=== PATIENT | male | born 1995 | race African-American/Black ===

== ENCOUNTER 2020-10-18 11:06 | Outpatient (REF) | payer MEDICAID, SELFPAY | END 2020-10-18 11:07 | disposition home or self-care (01) | LOC: HO.LAB 11:06 | PROVIDERS: Visit Provider Internal Medicine | DX: Z20.828 Contact with and (suspected) exposure to other viral communicable diseases (principal) | CPT/HCPCS: C9803; U0003 ==

== ENCOUNTER 2020-10-31 08:44 | Emergency (ER) | payer MEDICAID, SELFPAY ==
[2020-10-31 08:55] VITALS: BP 111/61; PULSE 86; RESP 18; TEMP 37.7; O2SAT 97; BMI 27.3
--- NOTE | 2020-10-31 09:10 | ED_ITS ---
HPI - Skin/Abscess/Foreign Bdy General Chief complaint: Skin/Abscess/Foreign Body Stated complaint: abscess under arm Time Seen by Provider: 10/31/20 09:04 Source: patient Mode of arrival: ambulatory Limitations: no limitations History of Present Illness HPI narrative: Patient here with right axillary swelling x3 days. History of abscesses which are recurrent. History of hydradenitis. No fevers or chills MD complaint: abscess/boil Onset (ago): day(s) (3 days) Tetanus up to date: no Location: RUE (axillae) Severity: mild Quality: burning Relieving factors: none Exacerbating factors: none Context: none Associated symptoms: denies other symptoms Treatments prior to arrival: none Related Data Previous Rx's Medication Instructions Recorded doxycycline monohydrate 100 mg PO BID #21 cap 10/31/20 ibuprofen 600 mg PO Q8H PRN #20 tab 10/31/20 Allergies Allergy/AdvReac Type Severity Reaction Status Date / Time SEASONAL ALLERGIES Allergy Mild SNEEEXING Uncoded 07/14/20 16:22 RUNNY NOSE Review of Systems Review of Systems: Yes all other systems are reviewed and are negative Constitutional: Constitutional: Reports no additional constitutional complaints, Denies body ache(s), Denies chills, Denies fever(s), Denies headache(s) and Denies weakness Eyes: Eyes: Reports no additional eye complaints and Denies change in vision ENT: Reports system reviewed and no additional complaints, except as documented, Denies dizziness, Denies headache(s), Denies nasal congestion, Denies nasal discharge and Denies neck pain Cardiovascular: Cardiovascular: Reports no additional cardiovascular compl aints, Denies chest pain, Denies leg edema and Denies dyspnea Respiratory: Respiratory: Reports no additional respiratory complaints, Denies cough and Denies dyspnea Gastrointestinal: Gastrointestinal: Reports no additional gastrointestinal complaints, Denies abdominal pain, Denies diarrhea, Denies nausea and Denies vomiting Genitourinary: Genitourinary: Denies urinary incontinence Musculoskeletal: Musculoskeletal: Reports no additional musculoskeletal complaints, Denies back pain, Denies arthralgias, Denies joint swelling, Denies neck pain, Denies numbness and Denies tingling Integumentary/Breasts: Skin/Breast: Reports system reviewed and no additional complaints, except as docu, Reports furuncle and Denies rash Neurologic: Reports system reviewed and no additional complaints, except as documented, Denies Abnormal speech present, Denies dizziness, Denies headache (s), Denies numbness, Denies tingling and Denies weakness PMFSH Past Medical History Attestation statement: The following information was validated with the patient. Source: old records reviewed and nursing notes reviewed Medical History No known health problems Social History Social History Advance Directives: No Advance Directives Information Provided: No Physical Exam Vital Signs: Vital Signs: Last Vital Signs Temp 99.9 F 10/31/20 08:55 Pulse 86 10/31/20 08:55 Resp 18 10/31/20 08:55 BP 111/61 10/31/20 08:55 Pulse Ox 97 10/31/20 08:55 Body Mass Index 27.3 Const: General: cooperative, healthy appearing, comfortable and no acute dist ress Orientation/consciousness: patient oriented x3 Limitations: no limitations HENMT: Head: Yes normal to inspection Ears: hearing grossly normal bilaterally General nose exam: Normal external nose present Face and sinus: Yes normal facial exam Mouth: Normal oral and palatal mucosa present Throat: Yes posterior oropharynx normal Eyes: General: appearance normal, both eyes and all related structures Pupils: Equal, round and reactive pupils present Neck: Neck: Yes normal visual inspection Chest: Chest palpation & inspection: normal inspection of the chest Resp: Effort & Inspection: normal respiratory effort Auscultation: clear to auscultation bilaterally Cardio: Rate: regular rate Rhythm: regular rhythm Peripheral pulses: Peripheral pulses 2+ throughout GI: Inspection: Yes normal to inspection Palpation (GI): Soft to palpation and nontender Auscultation: normal bowel sounds Back/Spine/Pelvis: Thoracic/Lumbar Spine: thoracic and lumbar spine normal to inspection Skin: Other: to the right axilla there is a medium abscess with fluctuance, induration and tenderness. no surrounding cellulitis or lymphadenopathy General skin exam: no rashes or lesions noted Neuro: General: patient oriented x3, no focal motor deficits and normal sensation to monofilament Cranial nerves: Yes Equal, round and reactive pupils present Cognition (Neuro): normal cognition Speech: No Abnormal speech present Gait exam (Neuro): Normal gait present Motor exam (neuro): 5/5 motor strength present throughout Extrem: General: Yes normal to inspection Course Course Course Narrative: See I&D note. Patient given 1st dose of antibiotics and analgesia here in the emergency department. Refer you to follow-up care in 48 hours. Reviewed worrisome signs and symptoms of when to return to the emergency department. Comfortable discharge home. Procedures Abscess I/D Site: upper extremity (r axillae) Side (if applicable): right Local Anesthetic: lidocaine 2% Technique: incised with blade Packing used?: iodoform Discharge Plan Discharge Clinical Impression: Hidradenitis Abscess of skin or subcutaneous tissue Qualifiers: Site of cutaneous abscess: extremity Site of cutaneous abscess of extremity: axilla Laterality: right Qualified Code(s): L02.411 - Cutaneous abscess of right axilla Patient Disposition: Home, Self-Care Instructions: Abscess (ED), Hidradenitis Suppurativa (ED) Additional Instructions: return in 2 days for packing removal Prescriptions: New doxycycline monohydrate 100 mg capsule 100 mg PO BID Qty: 21 RF: 0 ibuprofen 600 mg tablet 600 mg PO Q8H PRN (Reason: pain) Qty: 20 RF: 0 Referrals: Woodrow Ratliff MD [Physician] - 2 days Interventions: ED Discharge Assessment Last Done: 10/31/20 09:40 Discharge Date/Time: 10/31/20 09:40
[2020-10-31] MEDS: Lidocaine HCl 2 % MPF 5 ML VIAL SUBCUT (09:12)
[2020-10-31] MEDS: Ibuprofen 600 MG TABLET PO (09:36)
== END 2020-10-31 09:40 | disposition home or self-care (01) ==
PROVIDERS: Emergency Provider Emergency Medicine
DX: L02.411 Cutaneous abscess of right axilla (principal)
CPT/HCPCS: 10060; 99283; 99284

== ENCOUNTER 2021-04-03 22:32 | Emergency (ER) | payer MEDICAID, SELFPAY ==
[2021-04-03 23:12] VITALS: BP 131/67; PULSE 67; RESP 18; TEMP 37.1; O2SAT 96; BMI 26.4
== END 2021-04-04 00:56 | disposition left against medical advice (07) ==
PROVIDERS: Emergency Provider Emergency Medicine; PCP Internal Medicine
DX: R50.9 Fever, unspecified (principal); Z20.822 Contact with and (suspected) exposure to COVID-19
CPT/HCPCS: 99282

== ENCOUNTER 2021-08-02 10:35 | Outpatient (REF) | payer MEDICAID, SELFPAY | END 2021-08-02 10:36 | disposition home or self-care (01) | LOC: HO.LAB 10:35 | PROVIDERS: Visit Provider Internal Medicine | DX: Z20.822 Contact with and (suspected) exposure to COVID-19 (principal) | CPT/HCPCS: C9803; U0003; U0005 ==

== ENCOUNTER 2021-08-02 10:50 | Emergency (ER) | payer MEDICAID, SELFPAY ==
[2021-08-02 12:09] VITALS: BP 116/67; PULSE 77; RESP 18; TEMP 36.4; O2SAT 97; BMI 27.7
--- NOTE | 2021-08-02 12:13 | ED.URI ---
HPI - URI/Sore Throat General Chief Complaint: Upper Respiratory Symptoms Stated Complaint: difficulty breathing Time Seen by Provider: 08/02/21 12:12 Source: patient Mode of arrival: ambulatory Limitations: no limitations History of Present Illness HPI Narrative: upper respiratory symptoms with fever, headache sore throat and cough, not vaccinated. Byron and sister have COVID and he has been watching them MD elicited complaint: fever, cough, sore throat and rhinorrhea Onset (ago): week(s) Consistency: constant Exacerbating factors: nothing Relieving factors: nothing Associated symptoms: fever, chills, headache and cough Related Data Previous Rx's Medication Instructions Recorded doxycycline monohydrate 100 mg 100 mg PO BID #21 cap 10/31/20 capsule ibuprofen 600 mg tablet 600 mg PO Q8H PRN #20 tab 10/31/20 Allergies Allergy/AdvReac Type Severity Reaction Status Date / Time SEASONAL ALLERGIES Allergy Mild SNEEEXING Uncoded 07/14/20 16:22 RUNNY NOSE Review of Systems Neurologic: Denies Sensory deficit (Neuro) [facility] Past Medical History Medical History No known health problems Physical Exam Vital Signs: Vital Signs: Last Vital Signs Temp 97.6 F 08/02/21 12:09 Pulse 77 08/02/21 12:09 Resp 18 08/02/21 12:09 BP 116/67 08/02/21 12:09 Pulse Ox 97 08/02/21 12:09 Body Mass Index 27.7 Const: Other: nasal congestion with cough General: healthy appearing Nutritional Appearance: average body habitus Orientation/consciousness: oriented to person and patient oriented x3 Limitations: no limitations HENMT: Head: Yes normal to inspection Ears: external ears normal General nose exam: Normal external nose present Mouth: Normal oral and palatal mucosa present and oropharynx normal Throat: Yes posterior oropharynx normal Eyes: General: appearance normal, both eyes and all related structures Neck: Other: supple Neck: Yes normal visual inspection Chest: Chest palpation & inspection: normal inspection of the chest Resp: Auscultation: clear to auscultation bilaterally Cardio: Jugular venous distension: no JVD Rate: regular rate Rhythm: regular rhythm Heart sounds: S1 normal heart sound present and S2 normal heart sound present GI: Inspection: Yes normal to inspection Palpation (GI): Soft to palpation, nontender and No hepatosplenomegaly present Auscultation: normal bowel sounds : General: Yes no CVA tenderness Back/Spine/Pelvis: Back: no CVA tenderness Skin: General skin exam: no rashes or lesions noted Neuro: General: oriented to person and patient oriented x3 Cranial nerves: Yes CN's II-XII intact bilaterally Motor exam (neuro): 5/5 motor strength present throughout Sensory Exam: No Sensory deficit (Neuro) Extrem: General: Yes normal to inspection Psych: Appearance: grossly normal Course Reevaluation(s) Reevaluation #1: patient with COVID will dc home Time: 12:23 MDM - URI/Sore Throat Lab Data Labs: Lab Results 08/02/21 Range/Units 11:40 COVID-19 ([facility]) Positive A (Negative) COVID-19 Clin Com See Note Discharge Plan Discharge Clinical Impression: COVID-19 Patient Disposition: Home, Self-Care Instructions: COVID-19 (Coronavirus Disease 2019) (ED) Prescriptions: No Action doxycycline monohydrate 100 mg capsule 100 mg PO BID Qty: 21 RF: 0 ibuprofen 600 mg tablet 600 mg PO Q8H PRN (Reason: pain) Qty: 20 RF: 0 Referrals: Physician,Unknown J [Primary Care Provider] - 1 week
[2021-08-02 12:19] LABS: COVID-19 Test Positive (Negative); IDNOW Serial# 9DD0AD1C
== END 2021-08-02 12:44 | disposition home or self-care (01) ==
LOC: HO.ED 12:27
PROVIDERS: Emergency Provider Emergency Medicine
DX: U07.1 COVID-19 (principal)
CPT/HCPCS: 36415; 87635; 99283

== ENCOUNTER 2021-08-07 15:32 | Outpatient (REF) | payer MEDICAID, SELFPAY | END 2021-08-07 15:33 | disposition home or self-care (01) | LOC: HO.LAB 15:32 | PROVIDERS: Visit Provider Internal Medicine | DX: Z20.822 Contact with and (suspected) exposure to COVID-19 (principal) | CPT/HCPCS: C9803; U0003; U0005 ==

== ENCOUNTER 2021-09-05 11:05 | Emergency (ER) | payer OTHER, MEDICAID, SELFPAY ==
--- NOTE | ~2021-09-05 | XR_ITS ---
EXAMINATION: XR HAND, LEFT CLINICAL INFORMATION: Left hand injury. COMPARISON: None TECHNIQUE: PA, lateral, and oblique views of the left hand. FINDINGS: The bones and soft tissues are normal. No fracture. Alignment is anatomic. Joint spaces are maintained. No erosions or soft tissue calcifications. XR/XR hand LT min 3V IMPRESSION: Normal left hand.
[2021-09-05 12:24] VITALS: BP 110/34; PULSE 52; RESP 16; TEMP 36.7; O2SAT 98; BMI 27.3
[2021-09-05] MEDS: cephALEXin 500 MG CAPSULE PO (13:19)
[2021-09-05] MEDS: Diphth,Pertus(ACell),Tet Adult 0.5 ML SYRINGE IM (13:19)
--- NOTE | 2021-09-05 14:11 | ED_ITS ---
HPI - Wound/Laceration General Chief Complaint: Wound/Laceration Stated Complaint: lt hand injury - work related Time Seen by Provider: 09/05/21 13:10 History of Present Illness HPI narrative: Patient complains of puncture wound to the palm of the left hand from a piece of metal at work, no numbness or weakness no tingling no other injury Related Data Previous Rx's Medication Instructions Recorded doxycycline monohydrate 100 mg 100 mg PO BID #21 cap 10/31/20 capsule ibuprofen 600 mg tablet 600 mg PO Q8H PRN #20 tab 10/31/20 cephalexin 500 mg tablet 500 mg PO QID 3 Days #12 tab 09/05/21 ibuprofen 600 mg tablet 600 mg PO Q6H PRN #20 tab 09/05/21 Allergies Allergy/AdvReac Type Severity Reaction Status Date / Time SEASONAL ALLERGIES Allergy Mild SNEEEXING Uncoded 07/14/20 16:22 RUNNY NOSE Review of Systems Review of Systems: Left hand pain Negatives are no fever no chills no dizziness no weakness no headache no neck pain no numbness weakness or tingling no other injury Yes all other systems are reviewed and are negative [facility] Past Medical History Source: nursing notes reviewed Medical History No known health problems Social History Social History Advance Directives: No Advance Directives Information Provided: No Physical Exam Vital Signs: Vital Signs: Last Vital Signs Temp 98.1 F 09/05/21 12:24 Pulse 52 09/05/21 12:24 Resp 16 09/05/21 12:24 BP 110/34 L 09/05/21 12:24 Pulse Ox 98 09/05/21 12:24 Body Mass Index 27.3 General appearance no acute distress Head is normocephalic atraumatic Neck is supple Respiratory no distress Extremities full range of motion x4 Left hand has a puncture wound to the thenar eminence palmar surface, no active bleeding, there is minor swelling of the thenar eminence, there is full range of motion in all fingers, 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, no evidence of any tendon deficit Other extremities normal Course Course Course Narrative: Left hand x-ray did not show any foreign body or bony injury Patient is given prophylactic Keflex and a tetanus shot and will follow with [facility] in 2-3 days for recheck Discharge Plan Discharge Clinical Impression: Puncture wound of hand, left Patient Disposition: Home, Self-Care Additional Instructions: X-ray did not show any broken bone or foreign body You got a tetanus shot today We wrote for 3 days of preventative antibiotic Follow with [facility] for recheck in 3 days on Saturday if not better Prescriptions: New cephalexin 500 mg tablet 500 mg PO QID 3 Days Qty: 12 RF: 0 ibuprofen 600 mg tablet 600 mg PO Q6H PRN (Reason: pain) Qty: 20 RF: 0 No Action doxycycline monohydrate 100 mg capsule 100 mg PO BID Qty: 21 RF: 0 ibuprofen 600 mg tablet 600 mg PO Q8H PRN (Reason: pain) Qty: 20 RF: 0 Referrals: [facility] [Provider Group] - 2 days (Recheck for puncture wound to left hand) Stand Alone Forms: Work/School Release
== END 2021-09-05 14:23 | disposition home or self-care (01) ==
PROVIDERS: Emergency Provider Emergency Medicine; PCP Internal Medicine
DX: S61.432A Puncture wound without foreign body of left hand, initial encounter (principal); W26.8XXA Contact with other sharp object(s), not elsewhere classified, initial encounter; Y93.9 Activity, unspecified; Y92.9 Unspecified place or not applicable; Y99.0 Civilian activity done for income or pay
CPT/HCPCS: 73130; 90471; 90715; 99283; 99284

== ENCOUNTER → 2021-09-12 10:14 | Outpatient (BNVA) | payer OTHER, SELFPAY | PROVIDERS: PCP Internal Medicine; Visit Provider Internal Medicine | DX: S61.432A Puncture wound without foreign body of left hand, initial encounter (principal); W22.8XXA Striking against or struck by other objects, initial encounter | CPT/HCPCS: 99202 ==

== ENCOUNTER → 2021-09-15 09:06 | Outpatient (BNVA) | payer OTHER, SELFPAY | PROVIDERS: PCP Internal Medicine; Visit Provider Internal Medicine | DX: M79.645 Pain in left finger(s) (principal) | CPT/HCPCS: 99213 ==

== ENCOUNTER 2022-10-24 11:34 | Emergency (ER) | payer MEDICAID, SELFPAY ==
--- NOTE | ~2022-10-24 | XR_ITS ---
EXAMINATION: XR CHEST CLINICAL INFORMATION: Chest pain and shortness of breath COMPARISON: Previous chest x-ray November 2019 TECHNIQUE: Frontal view of the chest was obtained. FINDINGS: No significant abnormality is noted involving the heart, lungs, mediastinum, bony thorax or soft tissues. XR/XR chest 1V IMPRESSION: Unremarkable examination.
--- NOTE | 2022-10-24 11:40 | ECG_ITS ---
Test Reason : CHEST PAIN Blood Pressure : / mmHG Vent. Rate : 064 BPM Atrial Rate : 064 BPM P-R Int : 146 ms QRS Dur : 084 ms QT Int : 380 ms P-R-T Axes : 021 080 034 degrees QTc Int : 392 ms Normal sinus rhythm Normal ECG When compared with ECG of 17-AUG-2019 14:04, No significant change was found Referred By: Generic ED Physician Electronically Signed By:SAMIRA MCKENZIE MD
[2022-10-24 11:47] VITALS: BP 137/87; PULSE 64; RESP 16; TEMP 36.4; O2SAT 100; BMI 26.6
--- NOTE | 2022-10-24 11:47 | ED.GENADULT ---
HPI - General Adult General Chief complaint: Chest Pain <MAXIMINO Arredondo - Last Filed: 10/24/22 12:04> Stated complaint: chest pain , sob , body aches no appettite <MAXIMINO Arredondo - Last Filed: 10/24/22 12:04> Time Seen by Provider: 10/24/22 12:13 <MAXIMINO Arredondo - Last Filed: 10/24/22 12:04> Source: patient <Annamaria Mujica MD - Last Filed: 10/24/22 13:50> Mode of arrival: ambulatory <Annamaria Mujica MD - Last Filed: 10/24/22 13:50> History of Present Illness HPI narrative: 27-year-old male who is currently on Humira for hidradenitis suppurativa and presents with lower back discomfort for the past week but he does work as a manual labor this has not been associated with any fever or chills and did resolve somewhat with increasing his water intake. Patient then began experiencing acute left chest wall pain that was sharp in nature and was not worsened or a alleviated with any movement or breathing. Patient does not currently have the pain at this time and otherwise denies any GI or symptoms and denies any chest pain/palpitations. <Annamaria Mujica MD - Last Filed: 10/24/22 13:50> Related Data Home medications: Previous Rx's Medication Instructions Recorded doxycycline monohydrate 100 mg 100 mg PO BID #21 caps 10/31/20 capsule ibuprofen 600 mg tablet 600 mg PO Q8H PRN pain #20 tabs 10/31/20 cephalexin 500 mg tablet 500 mg PO QID 3 days #12 tabs 09/05/21 ibuprofen 600 mg tablet 600 mg PO Q6H PRN pain #20 tabs 09/05/21 <MAXIMINO Arredondo - Last Filed: 10/24/22 12:04> Allergies/adverse reactions: Allergies Allergy/AdvReac Type Severity Reaction Status Date / Time SEASONAL ALLERGIES Allergy Mild SNEEEXING Uncoded 10/24/22 11:52 RUNNY NOSE <MAXIMINO Arredondo - Last Filed: 10/24/22 12:04> Review of Systems Review of Systems: Pertinent positives and negatives as stated in HPI. <Annamaria Mujica MD - Last Filed: 10/24/22 13:50> PMFSH Past Medical History Source: nursing notes reviewed <Annamaria Mujica MD - Last Filed: 10/24/22 13:50> Medical History: Medical History No known health problems <MAXIMINO Arredondo - Last Filed: 10/24/22 12:04> Social History Social History: Social History Advance Directives: No Advance Directives Information Provided: Yes <MAXIMINO Arredondo - Last Filed: 10/24/22 12:04> Physical Exam ED Vital Signs: Vital Signs - 24 hr 10/24/22 11:47 Temperature 97.6 F Pulse Rate 64 Respiratory Rate 16 Blood Pressure 137/87 Pulse Oximetry 100 Oxygen Delivery Method Room Air BMI result Body Mass Index 26.6 <MAXIMINO Arredondo - Last Filed: 10/24/22 12:04> Vital Signs - 24 hr 10/24/22 11:47 Temperature 97.6 F Pulse Rate 64 Respiratory Rate 16 Blood Pressure 137/87 Pulse Oximetry 100 Oxygen Delivery Method Room Air BMI result Body Mass Index 26.6 VITAL SIGNS: Reviewed. GENERAL: Well developed, well nourished, in no acute distress. HEAD: Normocephalic/atraumatic EYES: PERRLA, EOMI EARS: Ext canals without abnormality OROPHARYNX: no oral lesions noted, posterior pharynx clear NECK: Supple, no adenopathy LUNGS: Normal breath sounds. No adventitious sounds or accessory muscle use. SpO2<100> CARDIOVASCULAR: Regular rate and rhythm without noted murmurs, no JVD or lower extremity edema. ABDOMEN: Soft, non-tender, non-distended with bowel sounds, no CVA tenderness BACK: No midline vertebral tenderness, no paraspinal tenderness MUSCULOSKELETAL: No tenderness, deformities, or effusions noted on gross inspection. EXTREMITIES: No cyanosis, clubbing or edema. SKIN: Inspection of the skin reveals no rashes NEUROLOGIC: Alert and oriented x 4. Strength and sensation to light touch were grossly intact x 4. <Annamaria Mujica MD - Last Filed: 10/24/22 13:50> Course Course Course Narrative: 11:48 - RME - 27 yo male with history of hidradenitis suppuritiva recently started on Humira 09/27 who is presenting with 4 days of low back pain, fatigue and lower abdominal discomfort when he needs to urinate. 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 No fevers. - will check viral swabs, EKG, labs, CXR, UA. VSS, nontoxic appearing. plan per provider in the Main <MAXIMINO Arredondo - Last Filed: 10/24/22 12:04> 11:48 - RME - 27 yo male with history of hidradenitis suppuritiva recently started on Humira 09/27 who is presenting with 4 days of low back pain, fatigue and lower abdominal discomfort when he needs to urinate. 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 No fevers. - will check viral swabs, EKG, labs, CXR, UA. VSS, nontoxic appearing. plan per provider in the Main I reviewed patient's laboratory workup and imaging studies, there is no evidence of acute infection, anemia, electrolyte disturbance, renal function is maintained, troponins are undetectable and there are no acute changes on the EKG, viral testing is negative, patient is PERC negative chest x-ray shows no acute abnormalities. Urinalysis is negative and patient is otherwise discharged home in stable condition and has an appointment with his primary care provider today at 15:30. <Annamaria Mujica MD - Last Filed: 10/24/22 13:50> Medical Decision Making Medical Decision Making [facility] Narrative: 27-year-old male with history and clinical presentation that appears to be primarily a costochondritis. PERC: Negative <Annamaria Mujica MD - Last Filed: 10/24/22 13:50> Differential Diagnosis Differential Diagnoses: The differential diagnosis associated with the presentation includes <Annamaria Mujica MD - Last Filed: 10/24/22 13:50> Costochondritis, musculoskeletal <Annamaria Mujica MD - Last Filed: 10/24/22 13:50> Lab Data [facility] Lab Attestation statement: I reviewed the patient's lab results. <Annamaria Mujica MD - Last Filed: 10/24/22 13:50> Please see the course Section for discussion. <Annamaria Mujica MD - Last Filed: 10/24/22 13:50> Result Diagrams: : 10/24/22 12:02 10/24/22 12:02 <MAXIMINO Arredondo - Last Filed: 10/24/22 12:04> Labs: Lab Results 10/24/22 10/24/22 10/24/22 Range/Units 12: 12:02 12:03 WBC 6.8 (4.8-10.8) X10*3/uL RBC 4.79 (4.60-5.80) X10*6/uL Hgb 14.9 (14.0-18.0) g/dl Hct 44.9 (42.0-52.0) % MCV 93.7 (80.0-98.0) fL MCH 31.1 (27.0-33.0) pg MCHC 33.2 (31.0-36.0) g/dl RDW 13.2 (11.0-16.0) % Plt Count 274 (160-400) X10*3/uL MPV 8.6 L (9.4-12.4) fL Immature Gran % (Auto) 0.1 (0.0-0.4) % Neut % (Auto) 48.4 (45-73) % Lymph % (Auto) 41.1 H (20-40) % [place] % (Auto) 6.6 (2-11) % Eos % (Auto) 3.1 (0-4) % Baso % (Auto) 0.7 (0-2) % Lymph # (Auto) 2.8 (1.2-4.9) X10*3/uL [place] # (Auto) 0.5 (0.1-1.2) X10*3/uL Eos # (Auto) 0.2 (0.0-0.4) X10*3/uL Baso # (Auto) 0.1 (0.0-0.2) X10*3/uL Abs Immat Gran (auto) 0.01 (0.00-0.03) X10*3/uL Absolute Neuts (auto) 3.3 (2.0-8.3) x10*3/uL Absolute Nucleated RBC 0.000 (0.0-0.012) X10*3/uL Nucleated RBC % (auto) 0.0 (0.0-0.2) /100WBC Sodium 140 (135-145) mmol/L Potassium 4.3 (3.3-5.1) mmol/L Chloride 103 (96-108) mmol/L Carbon Dioxide 29 (22-29) mmol/L Anion Gap 12 (12-20) BUN 14 (9-16) mg/dL Creatinine 1.39 (0.5-1.4) mg/dL Estim Creat Clear Calc 79.8 Estimated GFR > 60 Random Glucose 99 (60-115) mg/dL Calcium 9.9 (8.4-10.2) mg/dL Magnesium 1.9 (1.6-2.6) mg/dL Total Bilirubin 0.5 (0.0-1.0) mg/dL Direct Bilirubin 0.2 (0.0-0.5) mg/dL AST 23 (5-37) U/L ALT 18 (0-40) U/L Alkaline Phosphatase 71 (39-117) U/L Troponin I High Sens < 3.5 (<3.5-35.0) ng/L Total Protein 7.8 (6.5-8.0) g/dL Albumin 4.6 (3.5-5.0) g/dL Urine Color Urine Appearance Urine pH (5.0-9.0) Ur Specific [place] (1.005-1.025) Urine Protein (Neg-Trace) mg/dL Urine Glucose (UA) (Negative) mg/dL Urine Ketones (Negative) mg/dL Urine Blood (Negative) Urine Nitrite (Negative) Ur Leukocyte Esterase (Negative) COVID-19 (YOANDY) (Negative) COVID-19 Clin Com Influenza Type A (LU) (Negative) Influenza Type B (LU) (Negative) Influenza A & B Note 10/24/22 10/24/22 10/24/22 Range/Units 12:03 12:51 12:51 WBC (4.8-10.8) X10*3/uL RBC (4.60-5.80) X10*6/uL Hgb (14.0-18.0) g/dl Hct (42.0-52.0) % MCV (80.0-98.0) fL MCH (27.0-33.0) pg MCHC (31.0-36.0) g/dl RDW (11.0-16.0) % Plt Count (160-400) X10*3/uL MPV (9.4-12.4) fL Immature Gran % (Auto) (0.0-0.4) % Neut % (Auto) (45-73) % Lymph % (Auto) (20-40) % [place] % (Auto) (2-11) % Eos % (Auto) (0-4) % Baso % (Auto) (0-2) % Lymph # (Auto) (1.2-4.9) X10*3/uL [place] # (Auto) (0.1-1.2) X10*3/uL Eos # (Auto) (0.0-0.4) X10*3/uL Baso # (Auto) (0.0-0.2) X10*3/uL Abs Immat Gran (auto) (0.00-0.03) X10*3/uL Absolute Neuts (auto) (2.0-8.3) x10*3/uL Absolute Nucleated RBC (0.0-0.012) X10*3/uL Nucleated RBC % (auto) (0.0-0.2) /100WBC Sodium (135-145) mmol/L Potassium (3.3-5.1) mmol/L Chloride (96-108) mmol/L Carbon Dioxide (22-29) mmol/L Anion Gap (12-20) BUN (9-16) mg/dL Creatinine (0.5-1.4) mg/dL Estim Creat Clear Calc Estimated GFR Random Glucose (60-115) mg/dL Calcium (8.4-10.2) mg/dL Magnesium (1.6-2.6) mg/dL Total Bilirubin (0.0-1.0) mg/dL Direct Bilirubin (0.0-0.5) mg/dL AST (5-37) U/L ALT (0-40) U/L Alkaline Phosphatase (39-117) U/L Troponin I High Sens (<3.5-35.0) ng/L Total Protein (6.5-8.0) g/dL Albumin (3.5-5.0) g/dL Urine Color Yellow Urine Appearance Clear Urine pH 6.5 (5.0-9.0) Ur Specific [place] 1.015 (1.005-1.025) Urine Protein Negative (Neg-Trace) mg/dL Urine Glucose (UA) Negative (Negative) mg/dL Urine Ketones Negative (Negative) mg/dL Urine Blood Negative (Negative) Urine Nitrite Negative (Negative) Ur Leukocyte Esterase Negative (Negative) COVID-19 (YOANDY) Negative (Negative) COVID-19 Clin Com See Note Influenza Type A (LU) Negative (Negative) Influenza Type B (LU) Negative (Negative) Influenza A & B Note See Note <MAXIMINO Arredondo - Last Filed: 10/24/22 12:04> Lab Results 10/24/22 10/24/22 10/24/22 Range/Units 12:02 12:02 12:03 WBC 6.8 (4.8-10.8) X10*3/uL RBC 4.79 (4.60-5.80) X10*6/uL Hgb 14.9 (14.0-18.0) g/dl Hct 44.9 (42.0-52.0) % MCV 93.7 (80.0-98.0) fL MCH 31.1 (27.0-33.0) pg MCHC 33.2 (31.0-36.0) g/dl RDW 13.2 (11.0-16.0) % Plt Count 274 (160-400) X10*3/uL MPV 8.6 L (9.4-12.4) fL Immature Gran % (Auto) 0.1 (0.0-0.4) % Neut % (Auto) 48.4 (45-73) % Lymph % (Auto) 41.1 H (20-40) % [place] % (Auto) 6.6 (2-11) % Eos % (Auto) 3.1 (0-4) % Baso % (Auto) 0.7 (0-2) % Lymph # (Auto) 2.8 (1.2-4.9) X10*3/uL [place] # (Auto) 0.5 (0.1-1.2) X10*3/uL Eos # (Auto) 0.2 (0.0-0.4) X10*3/uL Baso # (Auto) 0.1 (0.0-0.2) X10*3/uL Abs Immat Gran (auto) 0.01 (0.00-0.03) X10*3/uL Absolute Neuts (auto) 3.3 (2.0-8.3) x10*3/uL Absolute Nucleated RBC 0.000 (0.0-0.012) X10*3/uL Nucleated RBC % (auto) 0.0 (0.0-0.2) /100WBC Sodium 140 (135-145) mmol/L Potassium 4.3 (3.3-5.1) mmol/L Chloride 103 (96-108) mmol/L Carbon Dioxide 29 (22-29) mmol/L Anion Gap 12 (12-20) BUN 14 (9-16) mg/dL Creatinine 1.39 (0.5-1.4) mg/dL Estim Creat Clear Calc 79.8 Estimated GFR > 60 Random Glucose 99 (60-115) mg/dL Calcium 9.9 (8.4-10.2) mg/dL Magnesium 1.9 (1.6-2.6) mg/dL Total Bilirubin 0.5 (0.0-1.0) mg/dL Direct Bilirubin 0.2 (0.0-0.5) mg/dL AST 23 (5-37) U/L ALT 18 (0-40) U/L Alkaline Phosphatase 71 (39-117) U/L Troponin I High Sens < 3.5 (<3.5-35.0) ng/L Total Protein 7.8 (6.5-8.0) g/dL Albumin 4.6 (3.5-5.0) g/dL Urine Color Urine Appearance Urine pH (5.0-9.0) Ur Specific [place] (1.005-1.025) Urine Protein (Neg-Trace) mg/dL Urine Glucose (UA) (Negative) mg/dL Urine Ketones (Negative) mg/dL Urine Blood (Negative) Urine Nitrite (Negative) Ur Leukocyte Esterase (Negative) COVID-19 (YOANDY) (Negative) COVID-19 Clin Com Influenza Type A (LU) (Negative) Influenza Type B (LU) (Negative) Influenza A & B Note 10/24/22 10/24/22 10/24/22 Range/Units 12:03 12:51 12:51 WBC (4.8-10.8) X10*3/uL RBC (4.60-5.80) X10*6/uL Hgb (14.0-18.0) g/dl Hct (42.0-52.0) % MCV (80.0-98.0) fL MCH (27.0-33.0) pg MCHC (31.0-36.0) g/dl RDW (11.0-16.0) % Plt Count (160-400) X10*3/uL MPV (9.4-12.4) fL Immature Gran % (Auto) (0.0-0.4) % Neut % (Auto) (45-73) % Lymph % (Auto) (20-40) % [place] % (Auto) (2-11) % Eos % (Auto) (0-4) % Baso % (Auto) (0-2) % Lymph # (Auto) (1.2-4.9) X10*3/uL [place] # (Auto) (0.1-1.2) X10*3/uL Eos # (Auto) (0.0-0.4) X10*3/uL Baso # (Auto) (0.0-0.2) X10*3/uL Abs Immat Gran (auto) (0.00-0.03) X10*3/uL Absolute Neuts (auto) (2.0-8.3) x10*3/uL Absolute Nucleated RBC (0.0-0.012) X10*3/uL Nucleated RBC % (auto) (0.0-0.2) /100WBC Sodium (135-145) mmol/L Potassium (3.3-5.1) mmol/L Chloride (96-108) mmol/L Carbon Dioxide (22-29) mmol/L Anion Gap (12-20) BUN (9-16) mg/dL Creatinine (0.5-1.4) mg/dL Estim Creat Clear Calc Estimated GFR Random Glucose (60-115) mg/dL Calcium (8.4-10.2) mg/dL Magnesium (1.6-2.6) mg/dL Total Bilirubin (0.0-1.0) mg/dL Direct Bilirubin (0.0-0.5) mg/dL AST (5-37) U/L ALT (0-40) U/L Alkaline Phosphatase (39-117) U/L Troponin I High Sens (<3.5-35.0) ng/L Total Protein (6.5-8.0) g/dL Albumin (3.5-5.0) g/dL Urine Color Yellow Urine Appearance Clear Urine pH 6.5 (5.0-9.0) Ur Specific [place] 1.015 (1.005-1.025) Urine Protein Negative (Neg-Trace) mg/dL Urine Glucose (UA) Negative (Negative) mg/dL Urine Ketones Negative (Negative) mg/dL Urine Blood Negative (Negative) Urine Nitrite Negative (Negative) Ur Leukocyte Esterase Negative (Negative) COVID-19 (YOANDY) Negative (Negative) COVID-19 Clin Com See Note Influenza Type A (LU) Negative (Negative) Influenza Type B (LU) Negative (Negative) Influenza A & B Note See Note <Annamaria Mujica MD - Last Filed: 10/24/22 13:50> Independent Interpretation I performed an independent interpretation of an: EKG <Annamaria Mujica MD - Last Filed: 10/24/22 13:50> Interpretation: Normal sinus rhythm, HR-64, no STEMI, IL/QRS/QTC is within normal limits. <Annamaria Mujica MD - Last Filed: 10/24/22 13:50> Radiology Impression Radiologist Impression: My interpretation is in agreement with radiology's impression of imaging studies. <Annamaria Mujica MD - Last Filed: 10/24/22 13:50> External Record Review External record reviewed: Outpatient record and Prior outpatient labs <Annamaria Mujica MD - Last Filed: 10/24/22 13:50> Discharge Plan Discharge Clinical Impression: Chest wall pain, Musculoskeletal pain <MAXIMINO Arredondo - Last Filed: 10/24/22 12:04> Patient Disposition: Home, Self-Care <MAXIMINO Arredondo - Last Filed: 10/24/22 12:04> Instructions: Chest Wall Pain (ED), Musculoskeletal Pain (ED) <MAXIMINO Arredondo - Last Filed: 10/24/22 12:04> Additional Instructions: 1. Recommend [id number] Tylenol in combination with lidocaine patch for your chest wall pain. As you seem to be concerned about ibuprofen associated kidney problems I would refrain from using this. 2. Please keep your scheduled appointment at 15:30. Return to the ER for worsening symptoms. <MAXIMINO Arredondo - Last Filed: 10/24/22 12:04> Prescriptions: No Action doxycycline monohydrate 100 mg capsule 100 mg PO BID Qty: 21 0RF ibuprofen 600 mg tablet 600 mg PO Q8H PRN (Reason: pain) Qty: 20 0RF cephalexin 500 mg tablet 500 mg PO QID 3 Days Qty: 12 0RF ibuprofen 600 mg tablet 600 mg PO Q6H PRN (Reason: pain) Qty: 20 0RF <MAXIMINO Arredondo - Last Filed: 10/24/22 12:04>
[2022-10-24 12:09] LABS: MANUAL DIFF FLAG NO
[2022-10-24 12:11] LABS: Basophils Absolute Auto 0.1 X10*3/uL (0.0-0.2); Basophils Percent Auto 0.7 % (0-2); Eosinophils Absolute Auto 0.2 X10*3/uL (0.0-0.4); Eosinophils Percent Auto 3.1 % (0-4); Hematocrit 44.9 % (42.0-52.0); Hemoglobin 14.9 g/dl (14.0-18.0); Imm Gran Abs Auto 0.01 X10*3/uL (0.00-0.03); Imm Gran Pct Auto 0.1 % (0.0-0.4); Lymphocytes Absolute Auto 2.8 X10*3/uL (1.2-4.9); Lymphocytes Percent Auto 41.1 % (20-40); Mean Corpuscular HGB Conc 33.2 g/dl (31.0-36.0); Mean Corpuscular Hemoglobin 31.1 pg (27.0-33.0); Mean Corpuscular Volume 93.7 fL (80.0-98.0); Mean Platelet Volume 8.6 fL (9.4-12.4); Monocytes Absolute Auto 0.5 X10*3/uL (0.1-1.2); Monocytes Percent Auto 6.6 % (2-11); Neutrophils Absolute Auto 3.3 x10*3/uL (2.0-8.3); Neutrophils Percent Auto 48.4 % (45-73); Platelet Count 274 X10*3/uL (160-400); Red Blood Count 4.79 X10*6/uL (4.60-5.80); Red Cell Distribution Width 13.2 % (11.0-16.0); White Blood Count 6.8 X10*3/uL (4.8-10.8)
[2022-10-24 12:12] LABS: Appearance Urine Clear; Color Urine Yellow; Glucose Urine UA Negative (Negative); Leukocyte Esterase Urine Negative (Negative); Nitrite Urine Negative (Negative); PH 6.5 (5.0-9.0); Specific Gravity - Urine 1.015 (1.005-1.025); Urine Blood Negative (Negative); Urine Ketones Negative (Negative); Urine Protein Negative (Neg-Trace)
[2022-10-24 12:25] LABS: Alanine Aminotransferase 18 U/L (0-40); Albumin Level 4.6 g/dL (3.5-5.0); Alkaline Phosphatase 71 U/L (39-117); Anion Gap 12 (12-20); Aspartate Amino Transferase 23 U/L (5-37); Bilirubin Direct 0.2 mg/dL (0.0-0.5); Bilirubin Total 0.5 mg/dL (0.0-1.0); Blood Urea Nitrogen 14 mg/dL (9-16); Calcium 9.9 mg/dL (8.4-10.2); Carbon Dioxide 29 mmol/L (22-29); Chloride 103 mmol/L (96-108); Creatinine Clr Calc Pharmacy 79.8; Estimated Glomerular Filt Rate > 60; Glucose Random 99 mg/dL (60-115); Magnesium 1.9 mg/dL (1.6-2.6); Potassium 4.3 mmol/L (3.3-5.1); Sodium 140 mmol/L (135-145); Total Protein 7.8 g/dL (6.5-8.0)
[2022-10-24 12:33] LABS: Troponin-I High Sensitivity < 3.5 ng/L (<3.5-35.0)
[2022-10-24 13:16] LABS: COVID-19 Test Negative (Negative); IDNOW Serial# 08D9AD1C
[2022-10-24 13:17] LABS: Influenza A Negative (Negative); Influenza B2 Negative (Negative)
== END 2022-10-24 13:53 | disposition home or self-care (01) ==
PROVIDERS: Physician Assistant; Emergency Provider Student in an Organized Health Care Education/Training Program
DX: R07.89 Other chest pain (principal); R06.02 Shortness of breath; Z20.822 Contact with and (suspected) exposure to COVID-19; Z79.899 Other long term (current) drug therapy
CPT/HCPCS: 36415; 71045; 80048; 80076; 81003; 82550; 83735; 84484; 85025; 87502; 87635; 93005; 99283; 99284

== ENCOUNTER 2023-06-07 11:29 | Outpatient (REF) | payer MEDICAID, SELFPAY | END 2023-06-07 11:30 | disposition home or self-care (01) | LOC: HO.LNP 11:29 | PROVIDERS: PCP Nurse Practitioner Family; Referring Provider Registered Nurse; Visit Provider Surgery | DX: L02.01 Cutaneous abscess of face (principal); Z79.2 Long term (current) use of antibiotics; Z79.899 Other long term (current) drug therapy | CPT/HCPCS: 10060; 87070; 87205; 99202 ==

== ENCOUNTER 2023-06-07 11:29 | Outpatient (AMB) | payer MEDICAID, SELFPAY ==
--- NOTE | 2023-06-07 11:34 | MHC.OFFVIS ---
Intake Vital Signs 06/07/23 11:48 Height 5 ft 9 in Weight 175 lb BMI 25.8 BP 116/56 L Blood Pressure Location Lt brachial Position Sitting Pulse 76 Intake Visit Reasons: I&D Lt upper cheek/ under eye Intake Note: Patient is seen in office for evaluation of a let upper cheek under the eye, possible I&D. Patient c/o: has a lump on the left cheek for aprox 3 weeks did see urgent care and they where unable to drain it, seen machine tank operator and was told might be due to his HS, admits to pain, swelling, eye is closing at night, nausea due to pain, and is currently on antibiotics Allergies SEASONAL ALLERGIES Allergy (Mild, Uncoded 06/07/23 11:42) SNEEEXING RUNNY NOSE Medication List - Last Reconciled 06/10/23 by Darrell Hernandez MD cephalexin 500 mg PO QID 3 days doxycycline monohydrate 100 mg PO BID ibuprofen 600 mg PO Q8H PRN ibuprofen 600 mg PO Q6H PRN HPI HPI Comments History of Present Illness Details 27-year-old male patient presenting for evaluation of an abscess of the left cheek. The lesion started out as a small pimple or insect bite in gradually increased in size and is now extending up the cheek towards his eye. Was evaluated by is machine tank operator felt this may be related to his hidradenitis. He was started on antibiotics but has not noted any significant improvement. He denies fever, chills, bleeding or discharge. He was also evaluated at a walk-in clinic but they could not perform an incision and drainage. He presents now for possible incision and drainage. Denies a previous infection at this location. [facility] Medical History No known health problems Family History Maternal Grandfather Throat cancer Paternal Aunt Breast cancer Paternal Aunt Breast cancer Paternal Aunt Breast cancer Leukemia Paternal Grandmother Pancreatic cancer Social History Alcohol intake: never Patient Tobacco Use Status: Former Tobacco user Review of Systems Const All systems reviewed & are unremarkable except as noted in HPI and below Denies chills, Denies fever(s), Denies headache(s), Denies poor appetite and Denies weakness ENT Denies headache(s) Card Denies chest pain, Denies irregular heart rhythm, Denies palpitations and Denies dyspnea Resp Denies cough, Denies excessive phlegm production and Denies dyspnea GI Denies abdominal pain, Denies bloating, Denies change in bowel habits, Denies constipation, Denies heartburn, Denies diarrhea, Denies nausea and Denies vomiting Denies difficulty urinating and Denies urinary frequency Musc Denies back pain, Denies muscle weakness and Denies numbness Skin/Breast Denies changing lesions and Denies unusual bruising Neuro Denies headache(s), Denies numbness, Denies paresthesias and Denies weakness Psych Denies anxiety and Denies depression Endo Denies palpitations Sincere/Lymph Denies lymphadenopathy Physical Exam Vital Signs: Last Vital Signs Pulse 76 06/07/23 11:48 BP 116/56 L 06/07/23 11:48 BMI result Body Mass Index 25.8 Const General: cooperative and no acute distress Nutritional Appearance: well nourished Orientation/consciousness: patient oriented x3 Limitations: no limitations HEENT Head: Yes normocephalic and Yes atraumatic Head images: 1. Site of abscess left face. Site is tender, fluctuant, warm with surrounding area of erythema. Ears: hearing grossly normal bilaterally Resp Effort & Inspection: normal respiratory effort, no audible wheezes, no cough and no respiratory distress Cardio Jugular venous distension: no JVD GI Inspection: Yes normal to inspection Skin Other: Warm, dry, no rash Neuro General: patient oriented x3 Extrem General: Yes no clubbing, cyanosis or edema Office Procedures I&D Drain Details: Preoperative diagnosis: Abscess left face Postoperative diagnosis: Same Procedure: Incision and drainage abscess left face Surgeon: Darrell Hernandez MD Traffic Inspector: None Anesthesia: Lidocaine 1% with epinephrine Indications for procedure: Enlarging abscess of left face Operative findings: Abscess left face Specimen: Wound culture Estimated blood loss: Less than 2 mL Complications: None Procedure details: Patient was placed in a supine position. After assuring informed consent and confirming the site of surgery in the left face, the skin was prepped with Betadine and draped in a sterile fashion. Local anesthesia was then infiltrated over the abscess and a small incision made with 11 blade. The abscess cavity was entered and a moderate size abscess cavity drained. Wounds were irrigated with saline solution then packed with quarter-inch Nu Gauze. Dry sterile dressings were then applied. The patient tolerated the procedure well. He was discharged in stable condition. 65938-Rxftrxrv of Skin Abscess, simple All charges added?: Procedure code (CPT) selection complete Assessment & Plan Assessment & Plan (1) Abscess of face: Code(s): L02.01 - Cutaneous abscess of face Plan 27-year-old male patient presenting with an abscess of the left face. Incision and drainage was recommended. After discussion of the procedure, risks, and alternatives, he consented to the procedure. The incision drainage produced a small collection of purulence discharge. Wound cultures are sent. I have asked him to return in 1 week for a wound check. Orders: Orders Routine Culture w Gram Stain 06/07/23 L02.01 - Cutaneous abscess of face Coding Level of Care Code New Pt Level 4 (87466) Diagnoses Abscess of face L02.01 CPT Codes I&D Drain - Drain 1: 27772-Dvasvbeb of Skin Abscess, simple ([id number])
[2023-06-07 11:48] VITALS: BP 116/56; PULSE 76; BMI 25.8
== END 2023-06-07 12:04 | disposition home or self-care (01) ==
PROVIDERS: PCP Nurse Practitioner Family; Referring Provider Registered Nurse; Visit Provider Surgery
DX: L02.01 Cutaneous abscess of face (principal); L73.2 Hidradenitis suppurativa
CPT/HCPCS: 10060; 99204

== ENCOUNTER 2023-11-07 16:26 | Emergency (ER) | payer MEDICAID, SELFPAY ==
[2023-11-07 16:29] VITALS: BP 117/73; PULSE 90; RESP 20; TEMP 36.8; O2SAT 97; BMI 25.7
--- NOTE | 2023-11-07 16:30 | ED.SKABFB ---
HPI - Skin/Abscess/Foreign Bdy General Chief complaint: Skin/Abscess/Foreign Body Stated complaint: lab cyst on back of leg Related Data Previous Rx's Medication Instructions Recorded doxycycline monohydrate 100 mg 100 mg PO BID #21 caps 10/31/20 capsule ibuprofen 600 mg tablet 600 mg PO Q8H PRN pain #20 tabs 10/31/20 cephalexin 500 mg tablet 500 mg PO QID 3 days #12 tabs 09/05/21 ibuprofen 600 mg tablet 600 mg PO Q6H PRN pain #20 tabs 09/05/21 Allergies Allergy/AdvReac Type Severity Reaction Status Date / Time SEASONAL ALLERGIES Allergy Mild SNEEEXING Uncoded 06/07/23 11:42 RUNNY NOSE PMFSH Past Medical History Onset Date is defined in the Problem List Problems that require an onset date and time if occurred within 24 hrs of arrival to the ED Aortic Dissection and Rupture; Neurologic impairment; Cardiopulmonary Arrest; Endotracheal Intubation; Insertion or Replacement of Mechanical Circulatory Assist Device Medical History No known health problems Family History Family History Maternal Grandfather Throat cancer Paternal Aunt Breast cancer Paternal Aunt Breast cancer Paternal Aunt Breast cancer Leukemia Paternal Grandmother Pancreatic cancer Social History Social History Alcohol intake: never Patient Tobacco Use Status: Former Tobacco user Advance Directives: No Advance Directives Information Provided: No Physical Exam Vital Signs: Vital Signs: Last Vital Signs Temp 98.2 F 11/07/23 16:29 Pulse 90 11/07/23 16:29 Resp 20 11/07/23 16:29 BP 117/73 11/07/23 16:29 Pulse Ox 97 11/07/23 16:29 O2 Del Method Room Air 11/07/23 16:29 BMI result Body Mass Index 25.7 Course Course Course Narrative: c/o cyst left crease of posterior upper thigh into the left buttock x several days. Has a cyst that he drained on the right posterior thigh and attempted to drain the left but believes he made it worse. Took 600 mg Ibuprofen prior to arrival to the ED HX: Hidradenitis suppurative RME: A&Ox4, LS CTA, HR RRR, difficulty with ambulation due to pain. RME completed by Suzanne Discharge Plan Discharge Clinical Impression: Encounter for medical screening examination Patient Disposition: Left W/O Completing Treatment Prescriptions: No Action doxycycline monohydrate 100 mg capsule 100 mg PO BID Qty: 21 0RF ibuprofen 600 mg tablet 600 mg PO Q8H PRN (Reason: pain) Qty: 20 0RF cephalexin 500 mg tablet 500 mg PO QID 3 Days Qty: 12 0RF ibuprofen 600 mg tablet 600 mg PO Q6H PRN (Reason: pain) Qty: 20 0RF Discharge Date/Time: 11/07/23 20:04
--- OUTSIDE RECORDS SUMMARY | 2023-11-07 19:56 | XMS_ITS | Continuity of Care Document ---
Author Name Unknown Organization [facility] Autumn breana Address [address] [place] [address] [address] [place] [address]- Care Team Providers Care Inspector Watch Assembly Name Role Phone Janet Harris MD Primary Care Physicia n [place] [facility] [place]14/23 [facility] [address] [place] [address]- Allergies, Adverse Reactions, Alerts No Known Allergies Medications albuterol CFC free 90 mcg/inh inhalation aerosol 1 puffs, Inhalation, 4 times a day, PRN for wheezing, # 25 Gm, 0 Refills, Maintenance, Aerosol Start Date: 09/18/11 Status: Ordered ibuprofen 600 mg oral tablet 1 tablet = 600 mg, By Mouth, Every 6 hours, PRN as needed for pain, # 20 tablet, 0 Refills, Maintenance, Tablet Start Date: 09/19/11 Status: Ordered Naproxen By Mouth, 0 Refills, Maintenance Start Date: 02/03/13 Status: Ordered Singulair 10 mg oral tablet 1 tablet, By Mouth, Daily in PM, # 30 tablet, 0 Refills, Maintenance, Tablet Start Date: 09/18/11 Status: Ordered Problem List Condition Confirmation Course Effective Dates Status Health St atus Informant Bronchial asthma Confirmed Active Hydradenitis Confirmed 02/03/13 Active Patient Care team information Care Team Personnel Name: Janet Harris MD Position: [facility] MD Member Role: PCP Address: Address: [facility] [place] [address]- Care Team Related Persons Name: LAQUITA COSTA Address: home [address] [place] [address] Name: DEYVI NG Address: home [address] [place] [address]
== END 2023-11-07 20:04 | disposition left against medical advice (07) ==
LOC: HO.ED 19:55
PROVIDERS: Emergency Provider Emergency Medicine; PCP Nurse Practitioner Family
DX: L72.8 Other follicular cysts of the skin and subcutaneous tissue (principal); Z71.1 Person with feared health complaint in whom no diagnosis is made; L73.2 Hidradenitis suppurativa
CPT/HCPCS: 99281

== ENCOUNTER 2023-12-03 11:28 | Outpatient (REF) | payer MEDICAID, SELFPAY ==
[2023-12-04 07:38] LABS: HIV AB/AG Nonreactive (Nonreactive); HIV Num 1 0.06 S/CO (0.00-0.99)
[2023-12-04 19:53] LABS: RPR Rapid Plasma Reagin NON-REACTIVE (NON-REACTIVE)
[2023-12-05 18:24] LABS: HCV Log PCR <1.18 NOT DETECTED Log IU/mL (NOT DETECTED); HepC Viral Load <15 NOT DETECTED IU/mL (NOT DETECTED)
== END 2023-12-03 11:29 | disposition home or self-care (01) ==
LOC: HO.CHCLDS 11:28
PROVIDERS: Visit Provider Internal Medicine
DX: Z11.4 Encounter for screening for human immunodeficiency virus [HIV] (principal); N48.1 Balanitis
CPT/HCPCS: 36415; 86592; 87389; 87522

== ENCOUNTER 2024-01-20 10:19 | Emergency (ER) | payer OTHER, SELFPAY ==
[2024-01-20 10:48] VITALS: BP 106/59; PULSE 70; RESP 16; TEMP 37; O2SAT 98; BMI 25.4
[2024-01-20 11:17] LABS: Appearance Urine Cloudy; Color Urine Yellow; Glucose Urine UA Negative (Negative); Leukocyte Esterase Urine Negative (Negative); Nitrite Urine Negative (Negative); Specific Gravity - Urine 1.025 (1.005-1.025); Urine Blood Negative (Negative); Urine Ketones Negative (Negative); Urine Protein Negative (Neg-Trace)
[2024-01-20 11:24] LABS: Bacteria Urine None Seen (None Seen); Hyaline Casts Urine 0-2 /LPF (0-2); RBC Urine 0-2 /HPF (0-2); Squamous Epithelial Cell Urine 0-2 /HPF (0-2); WBC Urine 0-5 /HPF (0-5)
--- NOTE | 2024-01-20 11:40 | ED.MALEGU ---
HPI - Male Genitourinary General Chief complaint: Urogenital-Male Stated complaint: infection Time Seen by Provider: 01/20/24 11:10 Source: patient Mode of arrival: ambulatory Limitations: no limitations History of Present Illness HPI Narrative: Patient is a 28-year-old uncircumcised male with history of hidradenitis suppurativa who has been on antibiotics for his HS for the past 4 years prescribed by his outpatient phlebotomist. He was started on fluconazole also by his outpatient phlebotomist 1 month ago for balanitis and is on a 14 week course of treatment. He denies history of diabetes. He complains of ongoing white discharge from his penis as well as pain to the head of his penis with his morning erections. States he was tested for STIs approximately 1 month ago but has had unprotected sex with his girlfriend since then. Is requesting repeat testing today. Denies any dysuria. Complaint: penile discharge Onset (ago): week(s) Duration: constant Location: penis Quality: burning Relieving factors: none Exacerbating factors: palpation and other (erection) Associated symptoms: Reports discharge Related Data Previous Rx's Medication Instructions Recorded doxycycline monohydrate 100 mg 100 mg PO BID #21 caps 10/31/20 capsule ibuprofen 600 mg tablet 600 mg PO Q8H PRN pain #20 tabs 10/31/20 cephalexin 500 mg tablet 500 mg PO QID 3 days #12 tabs 09/05/21 ibuprofen 600 mg tablet 600 mg PO Q6H PRN pain #20 tabs 09/05/21 hydrocortisone 1 % topical cream 1 appl topical TID PRN skin 01/20/24 irritation #28.35 grams Allergies Allergy/AdvReac Type Severity Reaction Status Date / Time SEASONAL ALLERGIES Allergy Mild SNEEEXING Uncoded 06/07/23 11:42 RUNNY NOSE Review of Systems Review of Systems: As per HPI Yes all other systems are reviewed and are negative PMFSH Past Medical History Medical History No known health problems Family History Family History Maternal Grandfather Throat cancer Paternal Aunt Breast cancer Paternal Aunt Breast cancer Paternal Aunt Breast cancer Leukemia Paternal Grandmother Pancreatic cancer Social History Social History Alcohol intake: never Patient Tobacco Use Status: Former Tobacco user Advance Directives: No Advance Directives Information Provided: No Physical Exam Vital Signs: Vital Signs: Last Vital Signs Temp 98.6 F 01/20/24 10:48 Pulse 70 01/20/24 10:48 Resp 16 01/20/24 10:48 BP 106/59 L 01/20/24 10:48 Pulse Ox 98 01/20/24 10:48 O2 Del Method Room Air 01/20/24 10:48 BMI result Body Mass Index 25.4 Vital signs have been reviewed and appear to be correct. Blood pressure normal. Heart rate normal. Respiratory rate normal. Temperature normal. Oxygen saturation normal. Const: General: no acute distress, alert and awake Orientation/consciousness: patient oriented x3 HEENT: Head: Yes normocephalic and Yes atraumatic Mouth: oropharynx normal and moist mucous membranes Throat: Yes uvula midline Eyes: Pupils: Equal, round and reactive pupils present EOM: EOMs intact bilaterally Neck: Neck: Yes normal visual inspection, Yes full ROM, Yes no lymphadenopathy, Yes no meningeal signs and Yes supple Resp: Effort & Inspection: normal respiratory effort Auscultation: clear to auscultation bilaterally Cardio: Rate: regular rate Rhythm: regular rhythm Heart sounds: S1 normal heart sound present and S2 normal heart sound present Peripheral pulses: Peripheral pulses 2+ throughout GI: Inspection: Yes normal to inspection and No distended Palpation (GI): Soft to palpation, nontender, no guarding, hepatosplenomegaly present and No Rebound tenderness present Auscultation: normoactive bowel sounds : Other: Exam chaperoned by Gracei Lehman RN General: Yes no CVA tenderness Penis: uncircumcised, foreskin retracts, Localized penile swelling present (mild swelling to foreskin, no paraphimosis or phimosis) and other (milky white discharge to head/foreskin) Back/Spine/Pelvis: Back: no CVA tenderness Skin: General skin exam: elasticity normal and turgor normal Rashes: no rashes Neuro: General: patient oriented x3, gait normal and no meningeal signs Cranial nerves: Yes Equal, round and reactive pupils present Motor exam (neuro): 5/5 motor strength present throughout and Normal motor muscle tone present throughout Sensory Exam: Normal double simultaneous stimulation for sensation Medical Decision Making Medical Decision Making [facility] Narrative: Patient is a 28-year-old uncircumcised male with history of hidradenitis suppurativa who has been on antibiotics for his HS for the past 4 years prescribed by his outpatient phlebotomist. On exam patient is awake, A+Ox3, VS WNL, afebrile, normal neurological exam without focal deficits, physical exam findings as above. Given reported symptoms and physical exam findings, initial differential includes balanitis, phimosis, paraphimosis, STI, UTI. Urinalysis shows no evidence of infection. STI testing is pending, patient will be contacted with any positive results. Case discussed with Dr. Clarke who recommends a topical steroid, will prescribe short course of hydrocortisone cream. Will refer to urology for further evaluation and management, as patient may be candidate for circumcision. Return precautions discussed. Patient verbalized understanding of and agreement with plan. Differential Diagnosis Differential Diagnoses: The differential diagnosis associated with the presentation includes As per MDM. Consult Healthcare Provider Management of the patient was discussed with: Firebrick Layer Helper (Dr. Clarke, urologist) Lab Data [facility] Lab Attestation statement: I reviewed the patient's lab results. As per [facility]. Labs: Lab Results 01/20/24 01/20/24 Range/Units 11:06 12:28 Estimat Average Glucose 108 mg/dL Hemoglobin A1c % 5.4 (<6.0) % Urine Color Yellow Urine Appearance Cloudy Urine pH 8.0 (5.0-9.0) Ur Specific [place] 1.025 (1.005-1.025) Urine Protein Negative (Neg-Trace) mg/dL Urine Glucose (UA) Negative (Negative) mg/dL Urine Ketones Negative (Negative) mg/dL Urine Blood Negative (Negative) Urine Nitrite Negative (Negative) Ur Leukocyte Esterase Negative (Negative) Urine RBC 0-2 (0-2) /HPF Urine WBC 0-5 (0-5) /HPF Ur Squamous Epith Cells 0-2 (0-2) /HPF Urine Bacteria None Seen (None Seen) Hyaline Casts 0-2 (0-2) /LPF External Record Review External record reviewed: Inpatient record, Office record and Outpatient record Prescription Management I considered prescription management with: Other Discharge Plan Discharge Clinical Impression: Balanitis Patient Disposition: Home, Self-Care Instructions: Balanitis (ED) Additional Instructions: You were evaluated in emergency department today for penile pain and discharge. You are being prescribed 1% hydrocortisone cream to apply topically. You can perform warm salt water soaks twice daily. You are being referred to Urology for further evaluation and management of your symptoms. Please call their office to schedule an appointment as soon as possible. Return to the emergency department if you develop increased swelling, worsening pain, fever or any other concerning symptoms. Prescriptions: New hydrocortisone 1 % cream 1 appl topical TID PRN (Reason: skin irritation) Qty: 28.35 0RF No Action doxycycline monohydrate 100 mg capsule 100 mg PO BID Qty: 21 0RF ibuprofen 600 mg tablet 600 mg PO Q8H PRN (Reason: pain) Qty: 20 0RF cephalexin 500 mg tablet 500 mg PO QID 3 Days Qty: 12 0RF ibuprofen 600 mg tablet 600 mg PO Q6H PRN (Reason: pain) Qty: 20 0RF Referrals: [facility] [Provider Group]
[2024-01-20 12:45] LABS: Estimated Average Glucose 108 mg/dL; Hemoglobin A1c % 5.4 % (<6.0)
[2024-01-20 13:39] LABS: CT PCR NOT DETECTED (Not Detect.); NG PCR NOT DETECTED (Not Detect.)
[2024-01-20 13:51] VITALS: BP 106/59; PULSE 70; RESP 16; TEMP 37; O2SAT 98
[2024-01-21 04:24] LABS: Syphilis Screen Nonreactive (Nonreactive)
== END 2024-01-20 13:52 | disposition home or self-care (01) ==
PROVIDERS: Registered Nurse Emergency; Emergency Provider Emergency Medicine; PCP Nurse Practitioner Family
DX: N48.1 Balanitis (principal)
CPT/HCPCS: 0353U; 36415; 81001; 83036; 86780; 99282; 99283

== ENCOUNTER 2024-02-26 14:35 | Outpatient (AMB) | payer OTHER, SELFPAY ==
--- NOTE | 2024-02-26 15:30 | A.OFFVIS_ITS ---
Intake Visit Reasons: balanitis Intake Note: New Patient presents for initial visit for balanitis Urology Medications: none Blood Thinner: none Respiratory Coordinator Required: No Accompanied by: Self / Same As Patient Allergies SEASONAL ALLERGIES Allergy (Mild, Uncoded 02/26/24 16:23) SNEEEXING RUNNY NOSE Medication List - Last Reconciled 02/26/24 by MAIA Sams- clotrimazole-betamethasone 1-0.05 % 1 appl topical BID 4 weeks ibuprofen 800 mg PO TID HPI Comments Details: Mango is a very pleasant 28-year-old male patient of Dr. Casarez. He has a past medical history of hydradenitis suppurativa. He presents to the office today as a new patient for penile lesions. In discussion with the patient today he reports having followed up with his engineering and operations director for his ongoing HS. He reports being on multiple antibiotic therapy at which time he ended up with a fungal infection. He reports since then he has been experiencing ongoing issues with the foreskin of his uncircumcised penis and penile lesions. In assessment of the patient today it appears to the right of the frenulum there is a canker like open area approximately 3 mm. The penis is uncircumcised and foreskin is retractable however swelling noted to the neck of the gland. When asked he does report trying to refrain from sexual activity however has had intercourse over the last week and finds this to worsen symptoms. He reports prior to today's appointment he had multiple lesions however he has been self treating with Neosporin and 2 lesions have since subsided. He otherwise denies any bothersome urinary issues. He denies urinary urgency, urinary frequency, incontinence, nocturia, hematuria, dysuria, foul smelling urine, changes to urinary stream, flank pain, fever, and or chills. He is happy with his current voiding parameters. In office urinalysis results reviewed with the patient today. He reports soaking in bleach baths for his HS 3 times per week. Discussed refraining from this at this time given open area to penis. He discusses his upcoming appointment to a hydradenitis suppurativa clinic in [place]. He discusses his frustration with having HS. He otherwise offers no other issues or concerns at this time. [facility] Medical History No known health problems Family History Maternal Grandfather Throat cancer Paternal Aunt Breast cancer Paternal Aunt Breast cancer Paternal Aunt Breast cancer Leukemia Paternal Grandmother Pancreatic cancer Social History Alcohol intake: never Patient Tobacco Use Status: Former Tobacco user Review of Systems Const All systems reviewed & are unremarkable except as noted in HPI and below Physical Exam Const General: cooperative, healthy appearing, comfortable, no acute distress, well developed, alert and awake Nutritional Appearance: thin Orientation/consciousness: patient oriented x3 Limitations: no limitations HEENT Head: Yes normal to inspection, Yes normocephalic and Yes atraumatic Ears: hearing grossly normal bilaterally Eyes General: appearance normal, both eyes and all related structures Neck Neck: Yes normal visual inspection and Yes trachea midline Chest Chest palpation & inspection: normal inspection of the chest Resp Effort & Inspection: normal respiratory effort and able to speak in complete sentences Cardio Rate: regular rate GI Inspection: Yes normal to inspection Other: as per HPI General: Yes no CVA tenderness Male General Exam: Yes Genital lesions present Penis: normal penis, uncircumcised and Genital lesions present Meatus: meatus normal Scrotum: scrotum normal Testes: Testes normal Back/Spine/Pelvis Back: no CVA tenderness Skin General skin exam: no rashes or lesions noted Neuro General: patient oriented x3 Extrem General: Yes normal to inspection Psych Appearance: grossly normal and well kempt Mental Status: mental status grossly normal Speech and movement: Normal speech and movement present and Clear speech present Affect: normal affect Attitude: cooperative Thought process: Normal thought process present Thought content: Normal thought content present Insight: Fair insight present (Psych) Judgement: Fair judgement present (Psych) Results AMB Urinalysis, Automated UA Leukoctes 0 Luciano/uL Last Edit by Pepito Bundy on 02/26/24 15:40 UA Nitrite Negative Last Edit by Pepito Bundy on 02/26/24 15:40 UA Urobilinogen 0.2 mg/dL Last Edit by Pepito Bundy on 02/26/24 15:40 UA Protein 15 mg/dL Last Edit by Pepito Bundy on 02/26/24 15:40 UA pH 6.0 Last Edit by Pepito Boschclaude on 02/26/24 15:40 UA Blood 0 Mango/uL Last Edit by Adrianesdras Danitzaclaude on 02/26/24 15:40 UA Specific Cassatt 1.025 Last Edit by Pepito Danitzaclaude on 02/26/24 15:40 UA Ketone Positive Last Edit by Adrianesdras Danitzaclaude on 02/26/24 15:40 UA Bilirubin 1 mg/dL Last Edit by Adrianesdras Danitzaclaude on 02/26/24 15:40 UA Glucose 0 mg/dL Last Edit by Pepito Danitzaclaude on 02/26/24 15:40 Results Reviewed Results Reviewed: Laboratory Last Values Urine pH (Auto) 6.0 02/26/24 15:32 Specific Cassatt (Auto) 1.025 02/26/24 15:32 Urine Protein (Auto) 15 mg/dL 02/26/24 15:32 Glucose (UA)(Auto) 0 mg/dL 02/26/24 15:32 Urine Ketones (Auto) Positive 02/26/24 15:32 Urine Blood (Auto) 0 Magno/uL 02/26/24 15:32 Urine Nitrite (Auto) Negative 02/26/24 15:32 Urine Bilirubin (Auto) 1 mg/dL 02/26/24 15:32 Urine Urobilinogen (Auto) 0.2 mg/dL 02/26/24 15:32 Leukocyte Esterase (Auto) 0 Luciano/uL 02/26/24 15:32 Assessment & Plan Assessment & Plan (1) Lesion of penis: Code(s): N48.9 - Disorder of penis, unspecified Category: Medical (2) Balanitis: Code(s): N48.1 - Balanitis Category: Medical Plan In office urinalysis results reviewed with the patient today; as noted above. Discussed refraining from bleach baths at this time given lesion to penis. Patient currently denies any bothersome urinary issues. He reports be happy with current voiding parameters. Start clotrimazole-betamethasone as discussed and prescribed Continue to apply thin layer of Neosporin to penile lesion. Discussed proper care of the area Continue follow-up with HS clinic Follow-up 1 month; or sooner with any issues, concerns, and or questions. Orders: Orders AMB Urinalysis Automated Today Z13.9 - Encounter for screening, unspecified Medications: New 2 clotrimazole-betamethasone 1-0.05 % Apply thin coat 2 times per day 1 appl topical BID 45 grams 0RF 4 weeks N48.1 - Balanitis Patient Instructions: The patient had an opportunity to ask questions regarding the treatment plan. All questions were answered. Physical exam, labs, and imaging were discussed and reviewed in detail. As well as risks, benefits, and discussion of treatment choices. No major barriers to understanding were identified. The patient expressed understanding and agreement with the above treatment plan. The patient was made aware they should contact our office by phone for worsening of their current condition, the appearance of new symptoms, or with any questions or concerns. Compliance is encouraged with any medications and follow up testing that is ordered. It is a privilege to be allowed the opportunity to participate in? your urological care.? Again, if you have any questions or concerns If you have any questions or concerns please do not hesitate to contact me. The office is [phone]. This note is constructed using voice recognition software. While every effort has been made to ensure accuracy print shop assistant errors may have been included. Yours sincerely, DONNA Sams Coding Level of Care Code New Pt Level 4 (47832) Diagnoses Lesion of penis N48.9 Balanitis N48.1
== END 2024-02-26 16:19 | disposition home or self-care (01) ==
PROVIDERS: PCP Nurse Practitioner Family; Visit Provider Nurse Practitioner Family
DX: N48.9 Disorder of penis, unspecified (principal); N48.1 Balanitis
CPT/HCPCS: 99204

== ENCOUNTER → 2024-02-26 14:35 | Outpatient (BNVA) | payer OTHER, SELFPAY | PROVIDERS: PCP Nurse Practitioner Family; Visit Provider Nurse Practitioner Family | DX: N48.1 Balanitis (principal) | CPT/HCPCS: 81003 ==

== ENCOUNTER 2024-05-13 14:56 | Emergency (ER) | payer OTHER, SELFPAY ==
--- NOTE | ~2024-05-13 | XR_ITS ---
EXAMINATION: XR FOREARM, RIGHT AND HAND CLINICAL INFORMATION: Pain in right forearm following fall COMPARISON: None available. TECHNIQUE: AP and lateral views of the right forearm were obtained. FINDINGS: The bones and soft tissues are normal. No fracture. Imaged portions of the elbow and wrist are unremarkable. XR/XR forearm RT 2V IMPRESSION: Normal right forearm and hand.
--- NOTE | ~2024-05-13 | XR_ITS ---
EXAMINATION: XR FOREARM, RIGHT AND HAND CLINICAL INFORMATION: Pain in right forearm following fall COMPARISON: None available. TECHNIQUE: AP and lateral views of the right forearm were obtained. FINDINGS: The bones and soft tissues are normal. No fracture. Imaged portions of the elbow and wrist are unremarkable. XR/XR hand wrist RT IMPRESSION: Normal right forearm and hand.
--- NOTE | ~2024-05-13 | CT_ITS ---
EXAMINATION: CT HEAD W/O IV CONTRAST CT CERVICAL SPINE W/O IV CONTRAST CLINICAL INFORMATION: History of fall from 12 foot ladder. COMPARISON: No recent relevant comparison. TECHNIQUE: Head - Contiguous axial imaging of the head was performed from the skull base to the vertex without the administration of intravenous contrast, and axial images are reconstructed at 2 mm and 5 mm slice thickness. Cervical spine - A volumetric, helical CT acquisition of the cervical spine was obtained without contrast; in addition to the standard set of axial images, multiplanar reformatted images were provided in the coronal and sagittal imaging planes. This CT examination was performed using dose optimization techniques as appropriate, variously including the following: *Automated exposure control *Adjustment of mA and/or kV according to patient size (this includes techniques or standardized protocols for targeted exams where dose is matched to indication/reason for exam; i.e. extremities or head) *Use of iterative reconstruction technique DLP: 1096 mGy-cm (total) FINDINGS: HEAD: No acute intracranial findings. Georges to white matter differentiation is preserved. No evidence of intracranial hemorrhage, major vascular territory infarction, focal mass effect or midline shift. The ventricles have normal size and configuration. No hydrocephalus or extra-axial fluid collections. The calvarium is intact and the visualized paranasal sinuses, mastoid air cells and middle ear cavities are clear. The temporomandibular joints are normal. The orbits and globes are unremarkable. CERVICAL SPINE: There is lack of lordotic curvature of the cervical spine. The craniocervical junction is normal. The occipital condyles, dens and atlantodental articulation are intact. The vertebral body heights and alignment are maintained. No fractures in the anterior or posterior elements. No prevertebral soft tissue edema. A very small focus of anterior ligament ossification is noted at C5-C6. The disc spaces are well preserved. The facet joints are unremarkable. No stenosis of the central spinal canal or neural foramina. No hematoma in the visualized neck. Thyroid gland is normal. The examined lung apices are clear. CT/CT cervical spine wo IV con IMPRESSION: * No acute intracranial pathology. * No fracture or malalignment in the cervical spine.
[2024-05-13 15:27] VITALS: BP 115/64; PULSE 80; RESP 18; TEMP 36.7; O2SAT 100; BMI 26.4
--- NOTE | 2024-05-13 15:36 | ED_ITS ---
HPI - Fall General Chief Complaint: Fall Stated Complaint: fall, arm inj Time Seen by Provider: 05/13/24 20:11 Source: patient and RN notes reviewed Mode of arrival: ambulatory Limitations: no limitations History of Present Illness ED Provider: Lily Ramos PA-C [facility] Narrative: This is a 20-xlrz-cba-male, with no known medical problems, who presents to the ER with complaints of right arm pain after fall which occurred today. Pt states that he was on a ladder, approximately 12 feet high, and this ladder was sliding backwards away from the wall, and patient placed his right arm underneath the ladder, to stop it the slippage, but ended up falling down on the ladder, with the right arm underneath the ladder. He is unsure if he hit his head. He reports that he did not lose consciousness. He reports that he has had some pain and swelling to his right arm since the fall. He denies any chest pain, shortness of breath, abdominal pain, nausea, vomiting, or diarrhea. Denies any neck pain. Denies any weakness, numbness or tingling. No other complaint or concerns at this time. MD complaint: fall Onset (ago): hour(s) Fall from: from height (distance) Fall witnessed: yes, by bystander Place fall occurred: work Loss of consciousness: none Prolonged down time: no Symptoms prior to fall: none Context: tripped/slipped Location of injury - extremities: right: forearm Severity: mild Quality: aching Associated symptoms (after fall): denies Related Data Home Medications ?Medication ?Instructions ?Recorded ?Confirmed ibuprofen 800 mg tablet 800 mg PO TID 02/26/24 Allergies Allergy/AdvReac Type Severity Reaction Status Date / Time SEASONAL ALLERGIES Allergy Mild SNEEEXING Uncoded 05/22/24 10:59 RUNNY NOSE Review of Systems Review of Systems: Yes all other systems are reviewed and are negative Constitutional: Constitutional: Reports as per [facility] Past Medical History Medical History No known health problems Family History Family History Maternal Grandfather Throat cancer Paternal Aunt Breast cancer Paternal Aunt Breast cancer Paternal Aunt Breast cancer Leukemia Paternal Grandmother Pancreatic cancer Social History Social History (Updated 05/22/24 @ 11:00 by SLY Collins) Alcohol intake: never Patient Tobacco Use Status: Former Tobacco user Current occupational status: employed Current occupation: insulation / rigth handed Physical Exam Vital Signs: Vital Signs: Last Vital Signs Temp 98.3 F 05/13/24 20:18 Pulse 69 05/13/24 20:18 Resp 17 05/13/24 20:18 BP 116/78 05/13/24 20:18 Pulse Ox 100 05/13/24 20:18 O2 Del Method Room Air 05/13/24 20:18 BMI result Body Mass Index 26.4 Const: General: cooperative, comfortable and no acute distress Orientation/consciousness: patient oriented x3 Limitations: no limitations HEENT: Head: Yes normal to inspection, Yes normocephalic, Yes atraumatic, No Donato's sign, No hematoma, No palpable skull fracture, No raccoon eyes, No scalp lesion, No scalp tenderness and No periorbital ecchymosis Ears: hearing grossly normal bilaterally and TM's normal bilaterally (no hemotypanum) General nose exam: Normal external nose present Face and sinus: Yes normal facial exam Mouth: Normal oral and palatal mucosa present, oropharynx normal and moist mucous membranes Throat: Yes posterior oropharynx normal Eyes: General: appearance normal, both eyes and all related structures Eyelids: Yes eyelids normal Conjunctivae: conjunctivae normal Sclerae: sclerae normal Pupils: Equal, round and reactive pupils present EOM: EOMs intact bilaterally Neck: Other: no midline spine ttp Neck: Yes normal visual inspection, Yes full ROM and Yes no lymphadenopathy Lymphatic: no lymphadenopathy noted Chest: Chest palpation & inspection: normal inspection of the chest and normal palpation of entire chest wall Resp: Effort & Inspection: normal respiratory effort and able to speak in complete sentences Auscultation: clear to auscultation bilaterally, no crackles, no rales, no rhonchi and no wheezes Cardio: Rate: regular rate Rhythm: regular rhythm Heart sounds: S1 normal heart sound present and S2 normal heart sound present GI: Other: abdomen is soft, nontender, nondistended. No ecchymosis seen Inspection: Yes normal to inspection Skin: General skin exam: no rashes or lesions noted Trauma: no lacerations or abrasions Wounds: no wounds Neuro: General: patient oriented x3 and moves all extremities Cranial nerves: Yes Equal, round and reactive pupils present Extrem: Other: Right posterior forearm with mild edema, no bony stepoff. No crepitus, no open lacerations or sores. full ROM of the wrist and digits, able to flex, extend, supinate and pronate right arm. no ttp overlying right shoulder. General: Yes normal to inspection Right upper extremity: normal to inspection Left upper extremity: normal to inspection Right lower extremity: normal to inspection Left lower extremity: normal to inspection Course Reevaluation(s) Reevaluation #1: xrays and cts without any acute findings. Discussed with pt, advised to follow up with PCP and given strict return precautions. He understands and agrees with plan. Pt stable for d.c Medical Decision Making Medical Decision Making MDM Narrative: This is a 22-epuq-qjv-male, with no known medical problems, who presents to the ER with complaints of right arm pain after fall which occurred today. On arrival, vital signs WNL. He is alert and oriented x 4. He reports he may have hit his head, no LOC. Reporting only mild headache and right forearm pain. He has slight edema noted to right midforearm that is ttp. Given height of fall, will obtain ct head and neck. also ordered hand/wrist and forearm xrays. He has no CP, back pain, or abdominal pain, examination otherwise unremarkable. Differential Diagnosis Differential Diagnoses: The differential diagnosis associated with the presentation includes Fx, sprain, contusion, closed head injury, concussion Admission/Observation Consideration of admission/observation: Escalation of care including admission/observation considered Radiology Impression Discussion of test interpretation with radiology: I have reviewed the radiologist's reading. Radiologist Impression: CT/CT head/brain wo IV con IMPRESSION: * No acute intracranial pathology. * No fracture or malalignment in the cervical spine. Dictated By: Deepak Lyman MD XR/XR hand wrist RT IMPRESSION: Normal right forearm and hand. Dictated By: Jackson Castellanos MD Discharge Plan Discharge Clinical Impression: Contusion of arm, right, Closed head injury Patient Disposition: Home, Self-Care Instructions: Contusion in Adults (ED) Additional Instructions: You were seen in the emergency department after a fall. Your x-ray of your right hand and wrist, and forearm did not show any bony abnormalities. Your head and C-spine CT scans were normal. Please rest, ice, use Juan Antonio wrap to the area. You may take ibuprofen or Tylenol as needed for pain. If any new or worsening symptoms occur including but not limited to severe headache, dizziness, blurred vision, chest pain, shortness of breath, worsening arm pain, please return for re-evaluation. You may follow-up with orthopedics if you continue to have symptoms. Prescriptions: No Action ibuprofen 800 mg tablet 800 mg PO TID Referrals: [facility] [Provider Group] Stand Alone Forms: Work/School Release Interventions: ED Discharge Assessment Last Done: 05/13/24 20:18 Discharge Date/Time: 05/13/24 20:26 Print Language: French
[2024-05-13 19:57] VITALS: BP 116/78; PULSE 69; RESP 17; TEMP 36.8; O2SAT 100
[2024-05-13 20:18] VITALS: BP 116/78; PULSE 69; RESP 17; TEMP 36.8; O2SAT 100
--- OUTSIDE RECORDS SUMMARY | 2024-05-13 20:18 | XMS_ITS | Continuity of Care Document ---
Author Organization [facility] Address [address] [place] [address] [address] [place] [address]- Care Team Providers Care Table Runner Name Role Phone Not on Staff, PCP Primary Care Physician Unavail able Encounter [facility] [place] Date(s): 02/25/24 - 03/26/[address] [place] [address]- Attending Physician: Isra Correa Admitting Physician: AdmtrIsra Referring Physician: Admtr ArRavi Allergies, Adverse Reactions, Alerts No Known Allergies Medications Hibiclens 4% soap 1 applicator, Topically, 2 times a day, While showering. Okay to leave on skin and pat dry., # 473 mL, 10 Refills, Soft Stop, 02/25/24 16:04:00 EDT, [facility]/pharmacy #[id number], Partial fill upon patient request if the prescription is for a schedule II opioid... Start Date: 02/25/24 Status: Ordered ibuprofen 600 mg oral tablet 1 tablet = 600 mg, By Mouth, Every 6 hours, PRN as needed for pain, # 20 tablet, 0 Refills, Maintenance, Tablet Start Date: 09/19/11 Status: Ordered Problem List Condition Confirmation Course Effective Dates Status Health St atus Informant Bronchial asthma Confirmed Active Hydradenitis Confirmed 02/03/13 Active Social History Social History Type Response Smoking Status Former smoker, quit more than 30 days ago; Other: Quite 7 months ago; entered on: 02/25/24 Sex Patient Care team information Care Team Personnel Name: Not on Staff, PCP Position: S Physician (General Medicine) Member Role: PCP Care Team Related Persons Name: LAQUITA COSTA Address: home [address] [place] [address] Name: DEYVI NG Address: [address] [place] [address]
--- OUTSIDE RECORDS SUMMARY | 2024-05-13 20:18 | XMS_ITS | Continuity of Care Document ---
Author Organization [facility] Address [address] [place] [address] [address] [place] [address]- Care Team Providers Care Interactive Media Project Manager Name Role Phone Not on Staff, PCP Primary Care Physician Unavail able Encounter [facility] Date(s): 02/25/24 - 03/03/[address] [place] [address]- Attending Physician: Rachid House MD Referring Physician: Not on Staff, Referring MD Allergies, Adverse Reactions, Alerts No Known Allergies Medications Hibiclens 4% soap 1 applicator, Topically, 2 times a day, While showering. Okay to leave on skin and pat dry., # 473 mL, 10 Refills, Soft Stop, 02/25/24 16:04:00 EDT, [facility]/pharmacy #[id number], Partial fill upon patient request if the [...] asthma Confirmed Active Hydradenitis Confirmed 02/03/13 Active Vital Signs Most recent to oldest [Reference Range]: 1 Height 176 cm (02/25/24 3:42 PM) Weight 77.3 kg (02/25/24 3:42 PM) Pulse Rate [55-90 bpm] 66 bpm (02/25/24 3:42 PM) Body Mass Index [18.5-24.99 kg/m2] 24.95 kg/m2 (02/25/24 3:42 PM) Blood Pressure [90-138/55-84 mm Hg] 123/ 76mm Hg (02/25/24 3:42 PM) Temperature [96.8-100.4 DegF] 96.8 DegF (02/25/24 3:42 PM) Blood pressure sites Arm, right (02/25/24 3:42 PM) Temperature Route Temporal (02/25/24 3:42 PM) Weight Obtained Via Standing scale (02/25/24 3:42 PM) Social History Social History Type Response Smoking Status Former smoker, quit more than 30 days ago; Other: Quite 7 months ago; entered on: 02/25/24 Sex Patient Care team information Care Team Personnel Name: Not on Staff, PCP Position: S Physician (General Medicine) Member Role: PCP Care Team Related Persons Name: LAQUITA COSTA Address: home [address] [place] [address] Name: DEYVI NG Address: [address] [place] [address]
--- OUTSIDE RECORDS SUMMARY | 2024-05-13 20:18 | XMS_ITS | Continuity of Care Document ---
Author Organization [facility] Address [address] [place] [address] [address] [place] [address]- Care Team Providers Care Client Experience Manager Name Role Phone Not on Staff, PCP Primary Care Physician Unavail able [place] [facility] [place]/26/[place] - 01/26/[address] [place], [place] [address] Attending Physician: Rachid House MD Referring Physician: [...] Persons Name: LAQUITA COSTA Address: [address] [place] [address] Name: DEYVI NG Address: [address] [place] [address]
--- OUTSIDE RECORDS SUMMARY | 2024-05-13 20:18 | XMS_ITS | Continuity of Care Document ---
Author Organization [facility] Address [address] [place] [address] [address] [place] [address]- Care Team Providers Care Plastic Products Sales Representative Name Role Phone Not on Staff, PCP Primary Care Physician Unavail able [place] [facility] [place] - 03/26/[address] [place], [place] [address] Allergies, Adverse Reactions, Alerts No Known Allergies Medications Hibiclens 4% soap 1 applicator, Topically, 2 times a day, While showering. Okay to leave on skin and pat dry., # 473 mL, 10 Refills, Soft Stop, 02/25/24 16:04:00 EDT, [facility]/pharmacy #[id number], Partial fill upon patient request if [...] Persons Name: LAQUITA COSTA Address: [address] [place] [address] Name: DEYVI NG Address: [address] [place] [address]
--- OUTSIDE RECORDS SUMMARY | 2024-05-13 20:18 | XMS_ITS | Continuity of Care Document ---
Author Organization [facility] Address [address] [place] [address] [address] [place] [address]- Care Team Providers Care Medical Imaging Tech Name Role Phone Not on Staff, PCP Primary Care Physician Unavail able Encounter [facility] Date(s): 10/11/23 - 12/26/[address] [place], [place] [address] Attending Physician: Rachid House MD Referring [...] Persons Name: LAQUITA COSTA Address: [address] [place] [address] Name: DEYVI NG Address: [address] [place] [address]
== END 2024-05-13 20:26 | disposition home or self-care (01) ==
PROVIDERS: Emergency Provider Internal Medicine; PCP Nurse Practitioner Family
DX: S40.021A Contusion of right upper arm, initial encounter (principal); S09.90XA Unspecified injury of head, initial encounter; W11.XXXA Fall on and from ladder, initial encounter; Y93.9 Activity, unspecified; Y92.9 Unspecified place or not applicable; Y99.9 Unspecified external cause status
CPT/HCPCS: 70450; 72125; 73090; 73110; 73130; 99283; 99284

== ENCOUNTER 2024-05-22 10:40 | Outpatient (AMB) | payer OTHER, SELFPAY ==
--- NOTE | 2024-05-22 10:58 | A.OFFVIS_ITS ---
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 Patient states he fell off a 12 ft ladder at work, the ladder slid backward on concrete and he tried to grab the ladder but his arm got caught between and hit the floor with him landing on top the ladder and his arm still under. Patient expresses today is the first day he woke up without pain and swelling in his hand and feels improvement in his symptoms. He expresses he was having difficulty with stretching his hand out due to radiating pain into his forearm with occasional tingling. He returned to work after his ED visit but his hand was still swelling after 3 hours at work. His boss has him out of work until his follow up with orthopedics. He has been taking ibuprofen when he physically sees his hand swell or activity has pain. He would like to discuss work status today. 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 The patient reports that, on that date, he was on a 12 ft ladder installing insulation in a house, when the ladder fell and his right arm and hand were caught between the ladder and the ground. The p atient reports that, since this time, he had been experiencing significant pain in the dorsal hand in the ulnar-sided forearm, along with what he felt was a palpable bump in his ulnar forearm. Today, the patient reports that this is the 1st day he has not experienced any pain, and that the bump in his forearm has been reduced significantly. Patient inquires if he can be cleared to return to work at this time. No other acute complaints or concerns. [facility] Medical History No known health problems Family History Maternal Grandfather Throat cancer Paternal Aunt Breast cancer Paternal Aunt Breast cancer Paternal Aunt Breast cancer Leukemia Paternal Grandmother Pancreatic cancer Social History (Updated 05/22/24 @ 11:00 by SLY Collins) Alcohol intake: never Patient Tobacco Use Status: Former Tobacco user Current occupational status: employed Current occupation: insulation / rigth handed Review of Systems Const All systems reviewed & are unremarkable except as noted in HPI and below Physical Exam Extrem Other: Patient is alert, oriented, and in no acute distress. Neuro: Median, ulnar, radial nerves motor and sensory intact and sensation is normal to the tips of all digits. Vascular: Cap refill brisk Pain: Patient reports no pain or tenderness to palpation at this time. The patient does report that he experiences some mild stiffness in the dorsal aspect of the right hand. ROM: Patient is able to extend his fingers fully and make a closed fist without difficulty Skin: No lacerations or abrasions. General: No ecchymosis, erythema, or evidence of infection. There is a small area of edema over the midshaft of the right ulna, nontender to palpation Psych: Appears grossly normal Affect normal Attitude cooperative Results Reviewed Results Reviewed: X-rays taken in the emergency department on 05/13/2024 and independently reviewed by me, Angus Melgar PA-C, demonstrate no fracture or acute bony abnormality. Assessment & Plan Assessment & Plan (1) Contusion of right lower arm: Code(s): S50.11XA - Contusion of right forearm, initial encounter Category: Medical Plan 1. Contusion of right arm Date of injury 05/13/2024 Patient is recovering well Patient is informed that there is no fracture or acute bony abnormality on x- ray, particularly at the level of the swelling in his ulnar forearm Patient is very satisfied with his recovery course thus far Patient is informed that he will be cleared to return to work next week Patient is amenable to this plan Patient will follow-up as needed with any acute concerns Coding Level of Care Code New Pt Level 3 (78920) Diagnoses Contusion of right lower arm S50.11XA
== END 2024-05-22 11:15 | disposition home or self-care (01) ==
PROVIDERS: PCP Nurse Practitioner Family
DX: S50.11XA Contusion of right forearm, initial encounter (principal)
CPT/HCPCS: 99202

== ENCOUNTER → 2024-05-22 10:40 | Outpatient (BNVA) | payer OTHER, SELFPAY | PROVIDERS: PCP Nurse Practitioner Family | DX: S50.11XA Contusion of right forearm, initial encounter (principal) | CPT/HCPCS: 99202 ==

== ENCOUNTER 2024-05-30 10:52 | Outpatient (AMB) | payer SELFPAY ==
[2024-05-30 12:11] VITALS: BP 110/58; PULSE 81; TEMP 36.6; O2SAT 98; BMI 27.9
--- NOTE | 2024-05-30 12:11 | AM.OFFWIN_ITS ---
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 He reports that he is sexually active and does not use condoms with his female partner, who is also symptomatic. He denies fever or chills, joint swelling or pain, nausea vomiting or diarrhea, weakness or dizziness, myalgias or malaise, or other significant associated symptoms PFSH Medical History No known health problems Family History Maternal Grandfather Throat cancer Paternal Aunt Breast cancer Paternal Aunt Breast cancer Paternal Aunt Breast cancer Leukemia Paternal Grandmother Pancreatic cancer Social History Alcohol intake: never Patient Tobacco Use Status: Former Tobacco user Current occupational status: employed Current occupation: insulation / rigth handed Review of Systems Const All systems reviewed & are unremarkable except as noted in HPI and below Physical Exam Vital Signs: Last Vital Signs Temp 97.8 F 05/30/24 12:11 Pulse 81 05/30/24 12:11 BP 110/58 L 05/30/24 12:11 Pulse Ox 98 05/30/24 12:11 Oxygen Delivery Method Room Air 05/30/24 12:11 BMI result Body Mass Index 27.9 GI Palpation (GI): Soft to palpation, not firm, nontender, no guarding, not rigid and No hepatosplenomegaly present Penis: not edematous, not erythematous, no pustules and no vesicles Meatus: meatal discharge (Purulence) Scrotum: not edematous Testes: testicular tenderness Assessment & Plan Assessment & Plan (1) Urethritis, unspecified: Code(s): N34.2 - Other urethritis Plan Patient presentation highly suggestive of acute gonococcal urethritis. He admits to unprotected intercourse with a female partner with similar symptoms. Patent was given 500mg IM to the right buttock, RUQ without complication, to treat for uncomplicated gonorrhea urethritis. He was also written for doxycycline course to cover for presumptive chlamydia infection, although results are pending. He was counseled to follow-up for test of elimination, and to avoid sexual activity until he is cleared. He also did screen for HIV and other STDs today, and results are pending. He knows to go to the emergency department for worrisome symptoms. Orders: Orders HIV Ab/Ag 05/30/24 Z11.3 - Encounter for screening for infections with a predominantly sexual mode of transmission Syphilis Screen 05/30/24 Z11.3 - Encounter for screening for infections with a predominantly sexual mode of transmission CT NG by PCR 05/30/24 Z11.3 - Encounter for screening for infections with a predominantly sexual mode of transmission Hepatitis B Surface Antigen 05/30/24 Z11.3 - Encounter for screening for infections with a predominantly sexual mode of transmission Hepatitis C Antibody 05/30/24 Z11.3 - Encounter for screening for infections with a predominantly sexual mode of transmission Medications: New doxycycline monohydrate 100 mg PO BID 14 caps 0RF 7 days Coding Level of Care Code Est Pt Level 4 (66620) Diagnoses Urethritis, unspecified N34.2
== END 2024-05-30 14:17 | disposition home or self-care (01) ==
PROVIDERS: PCP Nurse Practitioner Family; Visit Provider Physician Assistant Medical
DX: N34.2 Other urethritis (principal)
CPT/HCPCS: 99214

== ENCOUNTER 2024-05-30 11:00 | Outpatient (REF) | payer OTHER, SELFPAY ==
[2024-05-30 19:41] LABS: CT PCR NOT DETECTED (Not Detect.); NG PCR DETECTED (Not Detect.)
== END 2024-05-30 11:01 | disposition home or self-care (01) ==
LOC: HO.CHCLNP 11:00
PROVIDERS: Visit Provider Physician Assistant Medical
DX: Z20.2 Contact with and (suspected) exposure to infections with a predominantly sexual mode of transmission (principal)
CPT/HCPCS: 87491; 87591

== ENCOUNTER 2024-05-30 13:42 | Outpatient (REF) | payer OTHER, SELFPAY ==
[2024-06-01 08:10] LABS: Syphilis Screen Nonreactive (Nonreactive)
[2024-06-01 08:38] LABS: HBsAGNum1 0.41 S/CO (0.00-0.99); HIV AB/AG Nonreactive (Nonreactive); HIV Num 1 0.05 S/CO (0.00-0.99); Hepatitis B Surface Antigen Negative (Negative); ~HepC Num1 0.13 S/CO (0.00-0.79); ~Hepatitis C Antibody Nonreactive (Nonreactive)
== END 2024-05-30 13:43 | disposition home or self-care (01) ==
LOC: HO.HMGCLDS 13:42
PROVIDERS: PCP Nurse Practitioner Family; Visit Provider Physician Assistant Medical
DX: Z11.4 Encounter for screening for human immunodeficiency virus [HIV] (principal); Z20.2 Contact with and (suspected) exposure to infections with a predominantly sexual mode of transmission
CPT/HCPCS: 36415; 86780; 86803; 87340; 87389

== ENCOUNTER 2024-05-30 13:54 | Outpatient (REF) | payer OTHER, SELFPAY | END 2024-05-30 13:55 | disposition home or self-care (01) | LOC: HO.LAB 13:54 | PROVIDERS: Visit Provider Physician Assistant Medical | DX: Z13.89 Encounter for screening for other disorder (principal) ==

== ENCOUNTER 2024-08-10 12:44 | Emergency (ER) | payer OTHER, SELFPAY ==
[2024-08-10 12:51] VITALS: BP 108/70; PULSE 88; RESP 20; TEMP 37.2; O2SAT 100; BMI 30.4
--- NOTE | 2024-08-10 12:52 | ED_ITS ---
HPI - General Adult General Chief complaint: General Medical Stated complaint: sida pain Related Data Home Medications ?Medication ?Instructions ?Recorded ?Confirmed ibuprofen 800 mg tablet 800 mg PO TID 02/26/24 Previous Rx's ?Medication ?Instructions ?Recorded doxycycline monohydrate 100 mg 100 mg PO BID 7 days #14 caps 05/30/24 capsule Allergies Allergy/AdvReac Type Severity Reaction Status Date / Time SEASONAL ALLERGIES Allergy Mild SNEEEXING Uncoded 08/10/24 12:54 RUNNY NOSE PMFSH Past Medical History Medical History No known health problems Family History Family History Maternal Grandfather Throat cancer Paternal Aunt Breast cancer Paternal Aunt Breast cancer Paternal Aunt Breast cancer Leukemia Paternal Grandmother Pancreatic cancer Social History Social History Alcohol intake: never Patient Tobacco Use Status: Former Tobacco user Advance Directives: No Advance Directives Information Provided: No Do you have a plan to hurt others: No Plan Current occupational status: employed Current occupation: insulation / rigth handed Physical Exam ED Vital Signs: BMI result Body Mass Index 30.4 Course Course Course Narrative: This is an RME: Additional HPI, ROS, PE not included below will be deferred to primary provider. RME assessment and note performed by: Lily Ramos PA-C This is a [id number]-male, with a hx of HS, who presents to the ER with a complaint of right flank pain x 3 days. Reports that he fell off a ladder 2 weeks ago and pulled his back . Reporting that he had blood in his stool, dark and bright red blood x 4-5 days. Reports that he vomiting 2 times yesterday, also endorsing nausea. Reports recent amoxicillin use due to left finger infection. Has also been taking tylenol and muscle relaxants. Plan: Labs Reevaluation(s) Reevaluation #1: Patient left without completing treatment. Medical Decision Making Lab Data 08/10/24 13:51 08/10/24 13:51 Labs: Lab Results 08/10/24 Range/Units 13:51 WBC 7.6 (4.8-10.8) X10*3/uL RBC 5.02 (4.60-5.80) X10*6/uL Hgb 14.3 (14.0-18.0) g/dl Hct 44.0 (42.0-52.0) % MCV 87.6 (80.0-98.0) fL MCH 28.5 (27.0-33.0) pg MCHC 32.5 (31.0-36.0) g/dl RDW 14.0 (11.0-16.0) % Plt Count 376 D (160-400) X10*3/uL MPV 8.2 L (9.4-12.4) fL Immature Gran % (Auto) 0.4 (0.0-0.4) % Neut % (Auto) 62.6 (45-73) % Lymph % (Auto) 26.0 (20-40) % Kendall % (Auto) 7.5 (2-11) % Eos % (Auto) 2.8 (0-4) % Baso % (Auto) 0.7 (0-2) % Lymph # (Auto) 2.0 (1.2-4.9) X10*3/uL Kendall # (Auto) 0.6 (0.1-1.2) X10*3/uL Eos # (Auto) 0.2 (0.0-0.4) X10*3/uL Baso # (Auto) 0.1 (0.0-0.2) X10*3/uL Abs Immat Gran (auto) 0.03 (0.00-0.03) X10*3/uL Absolute Neuts (auto) 4.8 (2.0-8.3) x10*3/uL Absolute Nucleated RBC 0.000 (0.0-0.012) X10*3/uL Nucleated RBC % (auto) 0.0 (0.0-0.2) /100WBC Sodium 137 (135-145) mmol/L Potassium 4.2 (3.3-5.1) mmol/L Chloride 102 (96-108) mmol/L Carbon Dioxide 27 (22-29) mmol/L Anion Gap 12 (12-20) BUN 21 H (9-16) mg/dL Creatinine 0.96 (0.5-1.4) mg/dL Estim Creat Clear Calc 125.2 Estimated GFR > 60 Random Glucose 93 (60-115) mg/dL Calcium 9.9 (8.4-10.2) mg/dL Magnesium 2.0 (1.6-2.6) mg/dL Total Bilirubin 0.2 (0.0-1.0) mg/dL Direct Bilirubin < 0.2 (0.0-0.5) mg/dL AST 17 (5-37) U/L ALT 15 (0-40) U/L Alkaline Phosphatase 74 (39-117) U/L Total Protein 8.2 H (6.5-8.0) g/dL Albumin 4.1 (3.5-5.0) g/dL Lipase 13 (8-78) U/L Discharge Plan Discharge Clinical Impression: Abdominal pain Patient Disposition: Left W/O Completing Treatment Prescriptions: No Action doxycycline monohydrate 100 mg capsule 100 mg PO BID 7 Days Qty: 14 0RF ibuprofen 800 mg tablet 800 mg PO TID Discharge Date/Time: 08/10/24 16:57
[2024-08-10 13:54] LABS: MANUAL DIFF FLAG NO
[2024-08-10 13:55] LABS: Basophils Absolute Auto 0.1 X10*3/uL (0.0-0.2); Basophils Percent Auto 0.7 % (0-2); Eosinophils Absolute Auto 0.2 X10*3/uL (0.0-0.4); Eosinophils Percent Auto 2.8 % (0-4); Hemoglobin 14.3 g/dl (14.0-18.0); Imm Gran Abs Auto 0.03 X10*3/uL (0.00-0.03); Imm Gran Pct Auto 0.4 % (0.0-0.4); Mean Corpuscular HGB Conc 32.5 g/dl (31.0-36.0); Mean Corpuscular Hemoglobin 28.5 pg (27.0-33.0); Mean Corpuscular Volume 87.6 fL (80.0-98.0); Mean Platelet Volume 8.2 fL (9.4-12.4); Monocytes Absolute Auto 0.6 X10*3/uL (0.1-1.2); Monocytes Percent Auto 7.5 % (2-11); Neutrophils Absolute Auto 4.8 x10*3/uL (2.0-8.3); Neutrophils Percent Auto 62.6 % (45-73); Platelet Count 376 X10*3/uL (160-400); Red Blood Count 5.02 X10*6/uL (4.60-5.80); White Blood Count 7.6 X10*3/uL (4.8-10.8)
[2024-08-10 14:11] LABS: Alanine Aminotransferase 15 U/L (0-40); Albumin Level 4.1 g/dL (3.5-5.0); Alkaline Phosphatase 74 U/L (39-117); Anion Gap 12 (12-20); Aspartate Amino Transferase 17 U/L (5-37); Bilirubin Direct < 0.2 mg/dL (0.0-0.5); Bilirubin Total 0.2 mg/dL (0.0-1.0); Blood Urea Nitrogen 21 mg/dL (9-16); Calcium 9.9 mg/dL (8.4-10.2); Carbon Dioxide 27 mmol/L (22-29); Chloride 102 mmol/L (96-108); Creatinine Clr Calc Pharmacy 125.2; Estimated Glomerular Filt Rate > 60; Glucose Random 93 mg/dL (60-115); Lipase 13 U/L (8-78); Potassium 4.2 mmol/L (3.3-5.1); Sodium 137 mmol/L (135-145); Total Protein 8.2 g/dL (6.5-8.0)
== END 2024-08-10 16:57 | disposition left against medical advice (07) ==
PROVIDERS: Physician Assistant Medical; Emergency Provider Emergency Medicine
DX: R10.9 Unspecified abdominal pain (principal); Z87.891 Personal history of nicotine dependence; Z79.899 Other long term (current) drug therapy
CPT/HCPCS: 36415; 80048; 80076; 83690; 83735; 85025; 99281; 99283

== ENCOUNTER 2024-08-19 16:40 | Emergency (ER) | payer OTHER, SELFPAY ==
--- NOTE | ~2024-08-19 | CT_ITS ---
EXAMINATION: CT ABDOMEN AND PELVIS WITH CONTRAST CLINICAL INFORMATION: Trauma, bleeding COMPARISON: None available. TECHNIQUE: Multidetector volumetric images were obtained from the superior aspect of the liver through the pubic symphysis following administration 85 mL of Omnipaque 350 intravenous contrast. Sagittal and coronal reformatted images were obtained on the technologist's workstation. Oral contrast: No This CT examination was performed using dose optimization techniques as appropriate, variously including the following: *Automated exposure control *Adjustment of mA and/or kV according to patient size (this includes techniques or standardized protocols for targeted exams where dose is matched to indication/reason for exam; i.e. extremities or head) *Use of iterative reconstruction technique DLP: 575 mGy-cm FINDINGS: LUNG BASES: The visualized lung bases are unremarkable. LIVER, GALLBLADDER, AND BILIARY TREE: The liver is normal in size, shape, and attenuation. No focal hepatic lesion or biliary ductal dilatation is present. The gallbladder is unremarkable with no evidence of radiopaque gallstones, gallbladder wall thickening, or obvious pericholecystic inflammatory changes. PANCREAS: Unremarkable. SPLEEN: Unremarkable. ADRENAL GLANDS: Unremarkable. KIDNEYS AND URETERS: The kidneys are normal in size, shape, and attenuation. No hydronephrosis, hydroureter, or calculi seen. No perinephric stranding. BLADDER: Unremarkable. GASTROINTESTINAL TRACT: The small and large bowel are unremarkable. The appendix is unremarkable. ABDOMINAL WALL: No significant hernia is appreciated. LYMPH NODES: Normal. VASCULAR: Unremarkable. PELVIC VISCERA: Unremarkable. OSSEOUS STRUCTURES: Unremarkable. CT/CT abdomen pelvis w IV con IMPRESSION: No significant abnormality. Fleischner guidelines were followed. Electronically signed by: Rafa Alfaro DO 08/19/2024 10:34 PM EDT
[2024-08-19 16:43] VITALS: BP 127/89; PULSE 122; RESP 20; TEMP 36.2; O2SAT 98; BMI 27.8
--- NOTE | 2024-08-19 16:43 | ED_ITS ---
HPI - General Adult General Chief complaint: Abdominal Pain Stated complaint: abd pain-back pain due to fall last week Time Seen by Provider: 08/19/24 19:21 History of Present Illness HPI narrative: Patient is a 28 year old male who presents today with a chief complaint of back pain radiating to the abdomen after falling off of a ladder last week. Patient states he landed on his back at that time and has had constant, 10/10 pain since that time. The pain goes from mid-back and wraps around the right side onto the left. He also is experiencing a shooting pain down his right leg. He was initially nauseous and had a few episodes of vomiting after the incident, but that has since subsided. The pain is worse when sitting and laying down. It is also worse when taking a deep breath. He has been taking ibuprofen, a muscle relaxant, and one dose of Prednisone that he had at home. He states this offers minimal relief. It is also of note that patient is experiencing BRB to dark red blood in his stool, however this has been ongoing x1 year. Related Data Home Medications ?Medication ?Instructions ?Recorded ?Confirmed ibuprofen 800 mg tablet 800 mg PO TID 02/26/24 Previous Rx's ?Medication ?Instructions ?Recorded doxycycline monohydrate 100 mg 100 mg PO BID 7 days #14 caps 05/30/24 capsule Allergies Allergy/AdvReac Type Severity Reaction Status Date / Time SEASONAL ALLERGIES Allergy Mild SNEEEXING Uncoded 08/19/24 16:47 RUNNY NOSE Review of Systems 2 Review of Systems: Yes all other systems are reviewed and are negative Constitutional: Constitutional: Denies anorexia Cardiovascular: Cardiovascular: Denies Abdominal Distension, Denies chest pain and Denies dyspnea Respiratory: Respiratory: Denies dyspnea Gastrointestinal: Gastrointestinal: Reports abdominal pain, Reports hematochezia, Denies change in bowel habits, Denies change in stool character, Denies coffee ground emesis and Reports vomiting Genitourinary: Genitourinary: Denies hematuria and Denies difficulty urinating Musculoskeletal: Musculoskeletal: Reports back pain Integumentary/Breasts: Skin/Breast: Denies swelling, Denies erythema and Denies unusual bruising Neurologic: Denies behavioral changes, Denies focal weakness and Denies Sensory deficit (Neuro) Psychiatric: Psychiatric: Denies behavioral changes PMFSH Past Medical History Medical History No known health problems Family History Family History Maternal Grandfather Throat cancer Paternal Aunt Breast cancer Paternal Aunt Breast cancer Paternal Aunt Breast cancer Leukemia Paternal Grandmother Pancreatic cancer Social History Social History Alcohol intake: never Patient Tobacco Use Status: Former Tobacco user Smoked in Last 30 Days: No Use of substances other than those prescribed or required for medical reasons: No Advance Directives: No Advance Directives Information Provided: No Current occupational status: employed Current occupation: insulation / rigth handed Physical Exam ED Vital Signs: Vital Signs - 24 hr 08/19/24 16:43 08/19/24 19:22 08/19/24 22:39 Temperature 97.2 F 98.1 F 98.4 F Pulse Rate 122 H 81 84 Respiratory Rate 20 16 16 Blood Pressure 127/89 111/76 123/84 Pulse Oximetry 98 99 98 Oxygen Delivery Method Room Air Room Air Room Air BMI result Body Mass Index 27.8 Const General: cooperative, healthy appearing, alert, awake and anxious Nutritional Appearance: average body habitus Orientation/consciousness: patient oriented x3 Limitations: no limitations HENMT Head: Yes normal to inspection, Yes normocephalic and Yes atraumatic Neck Neck: Yes no meningeal signs Chest Chest palpation & inspection: normal inspection of the chest Resp Effort & Inspection: normal respiratory effort, able to speak in complete sentences and no respiratory distress Auscultation: clear to auscultation bilaterally and lung sounds not diminished GI Inspection: Yes normal to inspection, No abdominal wall ecchymosis, No distended and No visible herniation Palpation (GI): Soft to palpation, no guarding, no hepatomegaly, no splenomegaly, no hernias and no masses Back/Spine/Pelvis Back: No mass and No erythema Thoracic/Lumbar Spine: lumbar spinal tenderness Skin Other: warm and dry General skin exam: no rashes or lesions noted Neuro Other: calm and cooperative General: patient oriented x3, gait normal, tone normal, moves all extremities, no meningeal signs, no focal motor deficits and CN's II-XI intact bilaterally Sensory Exam: No Sensory deficit (Neuro) Course Course Course Narrative: This is an RME: Additional HPI, ROS, PE not included below will be deferred to primary provider. RME assessment and note performed by: Lily Ramos PA-C This is a [id number]-male presents emergency department with complaints of ongoing back pain, and abdominal pain. Patient left without completing treatment on August 10, 2024 after fall from ladder 2 weeks prior to that visit. Patient states that he continues to have back pain however states that he now has pain radiating into his abdomen and into his pelvis. He denies any nausea, vomiting, diarrhea or urinary symptoms. He also reports ongoing rectal bleeding however states that this has been going on for 6 months. He has a appointment with his primary care physician tomorrow. Patient does have tenderness palpation along the right lumbar paraspinous muscles however he does have diffuse abdominal tenderness. Plan: Labs, UA, further ER evaluation needed. Medications Administered Discontinued Medications Generic Name Dose Route Start Last Admin Trade Name Freq PRN Reason Stop Dose Admin Iohexol 100 ml 08/19/24 20:39 08/19/24 20:40 Iohexol 350 Mg/Ml 100 Ml Infus..Btl IV 08/19/24 20:40 85 ml ONCE ONE Administration Methocarbamol 750 mg 08/19/24 19:48 08/19/24 19:58 Methocarbamol 750 Mg Tablet PO 08/19/24 19:49 750 mg ONCE ONE Administration Medical Decision Making Medical Decision Making [facility] Narrative: Trista West PA-C personally assessed the patient, performed the physical exam, and ordered the appropriate diagnostic studies. This note was written with the help of Trina BUCK. Patient is a 28 year old male who presents today with a chief complaint of back pain radiating to the abdomen after falling off of a ladder last week. Patient states he landed on his back at that time and has had constant, 10/10 pain since that time. The pain goes from mid-back and wraps around the right side onto the left. He also is experiencing a shooting pain down his right leg. He was initially nauseous and had a few episodes of vomiting after the incident, but that has since subsided. The pain is worse when sitting and laying down. It is also worse when taking a deep breath. He has been taking ibuprofen, a muscle relaxant, and one dose of Prednisone that he had at home. He states this offers minimal relief. It is also of note that patient is experiencing BRB to dark red blood in his stool, however this has been ongoing x1 year. He has a history of HS. Currently does not take any prescribed medications. Differential diagnosis: muscle strain, slipped disc, bowel perforation, sciatica Plan: Perforation was considered, however there is no clear bloating of the abdomen or decreased bowel function. H&H are also normal. A slipped disc was also considered, however the patient's leg pain is not constant, therefore also ruling out sciatica. Patient's pain is consistent with a muscle strain from his fall. Per Viktoriya West PA-C: I do feel the patient's exam is most consistent with musculoskeletal strain, and he is having referred pain to the abdominal wall. However, given the height of the fall which was between 8 and 9 ft, I am contemplating an intra-abdominal bleed, that may have resolved and now he has a residual hematoma. We will obtain a CT scan. Giving methocarbamol for pain. It is reassuring that he is hemodynamically stable and there was no drop in his hemoglobin and hematocrit. Given report of back and abdominal pain, I did consider dissection, however the patient is neurovascularly intact, he has no risk factors for vascular disease, he is not overtly hypertensive, and he has a mechanism of injury to support his distribution of discomfort. I have independently reviewed the following tests: Labs: No leukocytosis, not anemic, no electrolyte abnormality CT abdomen and pelvis: CT/CT abdomen pelvis w IV con IMPRESSION: No significant abnormality. Fleischner guidelines were followed. Electronically signed by: Rafa Alfaro DO 08/19/2024 10:34 PM EDT Lab Data 08/19/24 17:06 08/19/24 17:06 Labs: Lab Results 08/19/24 Range/Units 17:06 WBC 12.3 H (4.8-10.8) X10*3/uL RBC 4.92 (4.60-5.80) X10*6/uL Hgb 13.9 L (14.0-18.0) g/dl Hct 42.7 (42.0-52.0) % MCV 86.8 (80.0-98.0) fL MCH 28.3 (27.0-33.0) pg MCHC 32.6 (31.0-36.0) g/dl RDW 14.0 (11.0-16.0) % Plt Count 452 H (160-400) X10*3/uL MPV 8.1 L (9.4-12.4) fL Immature Gran % (Auto) 0.4 (0.0-0.4) % Neut % (Auto) 90.5 H (45-73) % Lymph % (Auto) 6.8 L (20-40) % Citrus % (Auto) 2.0 (2-11) % Eos % (Auto) 0.0 (0-4) % Baso % (Auto) 0.3 (0-2) % Lymph # (Auto) 0.8 L (1.2-4.9) X10*3/uL Citrus # (Auto) 0.3 (0.1-1.2) X10*3/uL Eos # (Auto) 0.0 (0.0-0.4) X10*3/uL Baso # (Auto) 0.0 (0.0-0.2) X10*3/uL Abs Immat Gran (auto) 0.05 H (0.00-0.03) X10*3/uL Absolute Neuts (auto) 11.2 H (2.0-8.3) x10*3/uL Absolute Nucleated RBC 0.000 (0.0-0.012) X10*3/uL Nucleated RBC % (auto) 0.0 (0.0-0.2) /100WBC Smear Tech's Comments VERIFIED Sodium 141 (135-145) mmol/L Potassium 3.8 (3.3-5.1) mmol/L Chloride 104 (96-108) mmol/L Carbon Dioxide 30 H (22-29) mmol/L Anion Gap 11 L (12-20) BUN 12 (9-16) mg/dL Creatinine 0.88 (0.5-1.4) mg/dL Estim Creat Clear Calc 135.4 Estimated GFR > 60 Random Glucose 112 (60-115) mg/dL Calcium 10.1 (8.4-10.2) mg/dL Magnesium 2.2 (1.6-2.6) mg/dL Total Bilirubin 0.2 (0.0-1.0) mg/dL Direct Bilirubin < 0.2 (0.0-0.5) mg/dL AST 23 (5-37) U/L ALT 19 (0-40) U/L Alkaline Phosphatase 86 (39-117) U/L Total Protein 8.6 H (6.5-8.0) g/dL Albumin 4.2 (3.5-5.0) g/dL Lipase 9 (8-78) U/L Discharge Plan Discharge Clinical Impression: Back contusion, Musculoskeletal strain Patient Disposition: Home, Self-Care Instructions: Contusion in Adults (ED) Additional Instructions: All of your labs were normal, the CT scan did not reveal any acute injury to any of your vital organs, or bone. You have sustained musculoskeletal strain with a likely contusion. See home care instructions. You can use [id number] ibuprofen 600 mg taken every 6 hours with food, alternated with [id number] Tylenol, 1000 mg taken every 8 hours. Follow up with your primary care provider as needed. Prescriptions: No Action doxycycline monohydrate 100 mg capsule 100 mg PO BID 7 Days Qty: 14 0RF ibuprofen 800 mg tablet 800 mg PO TID Stand Alone Forms: Work/School Release Print Language: Mongolian
--- NOTE | 2024-08-19 16:50 | ECG_ITS ---
Test Reason : TACHY Blood Pressure : / mmHG Vent. Rate : 071 BPM Atrial Rate : 071 BPM P-R Int : 128 ms QRS Dur : 096 ms QT Int : 344 ms P-R-T Axes : 000 122 -16 degrees QTc Int : 373 ms Normal sinus rhythm Indeterminate axis Inferior infarct , age undetermined Cannot rule out Anterior infarct , age undetermined Abnormal ECG When compared with ECG of 24-OCT-2022 11:43, QRS axis Shifted right Inferior infarct is now Present T wave inversion now evident in Inferior leads Referred By: Lily Ramos Electronically Signed By:Malcom Cortes
[2024-08-19 17:13] LABS: Basophils Percent Auto 0.3 % (0-2); Hematocrit 42.7 % (42.0-52.0); Hemoglobin 13.9 g/dl (14.0-18.0); Imm Gran Abs Auto 0.05 X10*3/uL (0.00-0.03); Imm Gran Pct Auto 0.4 % (0.0-0.4); Lymphocytes Absolute Auto 0.8 X10*3/uL (1.2-4.9); Lymphocytes Percent Auto 6.8 % (20-40); MANUAL DIFF FLAG SCAN; Mean Corpuscular HGB Conc 32.6 g/dl (31.0-36.0); Mean Corpuscular Hemoglobin 28.3 pg (27.0-33.0); Mean Corpuscular Volume 86.8 fL (80.0-98.0); Mean Platelet Volume 8.1 fL (9.4-12.4); Monocytes Absolute Auto 0.3 X10*3/uL (0.1-1.2); Neutrophils Absolute Auto 11.2 x10*3/uL (2.0-8.3); Neutrophils Percent Auto 90.5 % (45-73); Platelet Count 452 X10*3/uL (160-400); Red Blood Count 4.92 X10*6/uL (4.60-5.80); SCAN SMEAR FLAG 1; White Blood Count 12.3 X10*3/uL (4.8-10.8)
[2024-08-19 17:28] LABS: Alanine Aminotransferase 19 U/L (0-40); Albumin Level 4.2 g/dL (3.5-5.0); Alkaline Phosphatase 86 U/L (39-117); Anion Gap 11 (12-20); Aspartate Amino Transferase 23 U/L (5-37); Bilirubin Direct < 0.2 mg/dL (0.0-0.5); Bilirubin Total 0.2 mg/dL (0.0-1.0); Blood Urea Nitrogen 12 mg/dL (9-16); Calcium 10.1 mg/dL (8.4-10.2); Carbon Dioxide 30 mmol/L (22-29); Chloride 104 mmol/L (96-108); Creatinine Clr Calc Pharmacy 135.4; Estimated Glomerular Filt Rate > 60; Glucose Random 112 mg/dL (60-115); Lipase 9 U/L (8-78); Magnesium 2.2 mg/dL (1.6-2.6); Potassium 3.8 mmol/L (3.3-5.1); Sodium 141 mmol/L (135-145); Total Protein 8.6 g/dL (6.5-8.0)
[2024-08-19 17:33] LABS: SLIDE REVIEW VERIFIED
[2024-08-19 19:22] VITALS: BP 111/76; PULSE 81; RESP 16; TEMP 36.7; O2SAT 99
[2024-08-19] MEDS: methocarbamoL 750 MG TABLET PO (19:58)
[2024-08-19] MEDS: iohexoL 350 MG/ML 100 ML INFUS..BTL IV (20:40)
[2024-08-19 22:39] VITALS: BP 123/84; PULSE 84; RESP 16; TEMP 36.9; O2SAT 98
[2024-08-19 23:10] VITALS: BP 123/84; PULSE 84; RESP 16; TEMP 36.9; O2SAT 98
== END 2024-08-19 23:12 | disposition home or self-care (01) ==
PROVIDERS: Physician Assistant Medical; Emergency Provider Student in an Organized Health Care Education/Training Program
DX: S30.0XXA Contusion of lower back and pelvis, initial encounter (principal); S39.012A Strain of muscle, fascia and tendon of lower back, initial encounter; W11.XXXA Fall on and from ladder, initial encounter; Y93.9 Activity, unspecified; Y92.9 Unspecified place or not applicable; Y99.9 Unspecified external cause status
CPT/HCPCS: 36415; 74177; 80048; 80076; 83690; 83735; 85025; 93005; 99284; 99285; Q9967

== ENCOUNTER → 2024-08-19 16:50 | Outpatient (BNV) | payer SELFPAY | PROVIDERS: Emergency Provider Student in an Organized Health Care Education/Training Program; Visit Provider Internal Medicine Cardiovascular Disease | DX: R94.31 Abnormal electrocardiogram [ECG] [EKG] (principal) | CPT/HCPCS: 93010 ==

== ENCOUNTER 2024-11-05 12:09 | Emergency (ER) | payer OTHER, SELFPAY ==
--- NOTE | ~2024-11-05 | CT_ITS ---
EXAMINATION: CT HEAD WITHOUT CONTRAST CLINICAL INFORMATION: Head strike at work, left-sided headache. COMPARISON: 05/13/2024. TECHNIQUE: Contiguous axial imaging was performed from the skull base to vertex without intravenous administration of contrast. This CT examination was performed using dose optimization techniques as appropriate, variously including the following: *Automated exposure control *Adjustment of mA and/or kV according to patient size (this includes techniques or standardized protocols for targeted exams where dose is matched to indication/reason for exam; i.e. extremities or head) *Use of iterative reconstruction technique FINDINGS: There is no evidence of intracranial hemorrhage or extra-axial fluid collection. There is no mass effect, or edema. No CT evidence of acute territorial infarct. Ventricles, sulci, and cisterns are normal in size and configuration for patient age. No hydrocephalus. No midline shift. No significant white matter abnormalities. Empty sella noted. Globes and orbital contents image normally. No extracranial soft tissue abnormalities. The paranasal sinuses, mastoid air cells, and tympanic cavities are normally aerated. No suspicious bony abnormalities. No fractures. CT/CT head/brain wo IV con IMPRESSION: No acute intracranial abnormalities. Electronically signed by: Jared Miller MD 11/05/2024 02:10 PM [facility]
--- NOTE | 2024-11-05 12:25 | ED_ITS ---
HPI - General Adult General Chief complaint: Head Injury Stated complaint: head inj at work Time Seen by Provider: 11/05/24 14:37 Source: patient Mode of arrival: ambulatory Limitations: no limitations History of Present Illness ED Provider: Racheal DRAKE narrative: Patient is a 29-year-old male with history of 3 prior concussions presenting with complaint of headache after hitting head on a metal pipe at work. States he was looking down while walking and did not see the pipe, walked right into it. States pain was severe initially, dropped him to his knees. Denies loss of consciousness, is not anticoagulated. Feels dizzy now, left sided headache. Denies double vision, states he feels as though he has a film over his left eye. complaint: head injury Onset (ago): hour(s) Location: head Quality: aching Treatments prior to arrival: none Related Data Home Medications ?Medication ?Instructions ?Recorded ?Confirmed ibuprofen 800 mg tablet 800 mg PO TID 02/26/24 Previous Rx's ?Medication ?Instructions ?Recorded doxycycline monohydrate 100 mg 100 mg PO BID 7 days #14 caps 05/30/24 capsule Allergies Allergy/AdvReac Type Severity Reaction Status Date / Time SEASONAL ALLERGIES Allergy Mild SNEEEXING Uncoded 11/05/24 12:27 RUNNY NOSE Review of Systems Review of Systems: As per HPI Yes all other systems are reviewed and are negative Constitutional: Constitutional: Reports as per HPI [facility] Past Medical History Medical History No known health problems Family History Family History Maternal Grandfather Throat cancer Paternal Aunt Breast cancer Paternal Aunt Breast cancer Paternal Aunt Breast cancer Leukemia Paternal Grandmother Pancreatic cancer Social History Social History Alcohol intake: never Patient Tobacco Use Status: Former Tobacco user Current occupational status: employed Current occupation: insulation / rigth handed Physical Exam ED Vital Signs: Vital Signs - 24 hr 11/05/24 12:26 Temperature 97.3 F Pulse Rate 80 Respiratory Rate 18 Blood Pressure 134/73 Pulse Oximetry 98 Oxygen Delivery Method Room Air BMI result Body Mass Index 29.2 Vital signs have been reviewed and appear to be correct. Blood pressure normal. Heart rate normal. Respiratory rate normal. Temperature normal. Oxygen saturation normal. Const General: cooperative, healthy appearing and no acute distress Orientation/consciousness: oriented to person, oriented to place, oriented to time and patient oriented x3 Limitations: no limitations HENMT Head: Yes normal to inspection, Yes normocephalic and Yes atraumatic Ears: external ears normal, TM's normal bilaterally and EAC's normal General nose exam: Normal external nose present Face and sinus: Yes face symmetric Mouth: oropharynx normal and moist mucous membranes Throat: Yes uvula midline Eyes General: appearance normal, both eyes and all related structures Visual Peacock: normal visual peacock by confrontation Pupils: Equal, round and reactive pupils present EOM: EOMs intact bilaterally Neck Neck: Yes normal visual inspection and Yes supple Resp Effort & Inspection: normal respiratory effort and able to speak in complete sentences Auscultation: clear to auscultation bilaterally Cardio Rate: regular rate Rhythm: regular rhythm Heart sounds: S1 normal heart sound present and S2 normal heart sound present GI Palpation (GI): Soft to palpation and nontender Auscultation: normoactive bowel sounds General: Yes no CVA tenderness Back/Spine/Pelvis Back: no CVA tenderness Skin General skin exam: elasticity normal and turgor normal Neuro General: oriented to person, oriented to place, oriented to time, patient oriented x3, gait normal, tone normal, moves all extremities, Normal light touch and pain sensation, no focal motor deficits, CN's II-XI intact bilaterally and deep tendon reflexes 2+ bilaterally Cranial nerves: Yes Equal, round and reactive pupils present Cognition (Neuro): normal cognition Motor exam (neuro): 5/5 motor strength present throughout, Pronator motor function not present, no tremor noted, Normal motor muscle tone present throughout and Motor abnormalities not present Sensory Exam: Normal double simultaneous stimulation for sensation Coordination: fijshm-ku-[id number] test normal, alst-[id number] test normal and Romberg test negative Extrem General: Yes full ROM, Yes no pedal edema and Yes no calf tenderness Psych Mental Status: mental status grossly normal Affect: normal affect Thought process: Normal thought process present Course Course Course Narrative: This is a rapid medical exam performed by Kadeem Springer NP: Additional HPI, ROS, PE not included below will be deferred to primary provider. Patient is a 29-year-old male with history of 3 prior concussions presenting with complaint of headache after hitting head on a metal pipe at work. States he was looking down while walking and did not see the pipe, walked right into it. Denies LOC, is not anticoagulated. Feels dizzy now, left sided headache. Denies double vision, states he feels as though he has a film over his left eye. NIHSS 0. Plan: CT head Medical Decision Making Medical Decision Making [facility] Narrative: Patient is a 29-year-old male with history of 3 prior concussions presenting with complaint of headache after hitting head on a metal pipe at work. On exam patient is awake, A+Ox3, VS WNL, afebrile, normal neurological exam without foca l deficits, physical exam findings as above. Given reported symptoms and physical exam findings, initial differential includes but is not limited to contusion, concussion. Less likely ICH or skull fracture, but will obtain CT head. CT head notable for no evidence of ICH or skull fracture. My interpretation is in agreement with the radiologist's interpretation. Results discussed with patient and all questions answered. Will refer to [facility] for ongoing symptoms. Return precautions discussed. Patient verbalized understanding of and agreement with plan. Differential Diagnosis Differential Diagnoses: The differential diagnosis associated with the presentation includes As per [facility] Independent Interpretation I performed an independent interpretation of an: CT Scan Interpretation: No evidence of ICH or skull fracture on CT head. Radiology Impression Discussion of test interpretation with radiology: I have reviewed the radiologist's reading. Radiologist Impression: CT/CT head/brain wo IV con IMPRESSION: No acute intracranial abnormalities. External Record Review External record reviewed: Inpatient record, Office record and Outpatient record Discharge Plan Discharge Clinical Impression: Closed head injury Patient Disposition: Home, Self-Care Instructions: Head Injury (ED), Concussion (ED) Additional Instructions: You have been evaluated in the emergency department today for head injury. Your CT scan did not show signs of bleeding or fractures in your head. We recommend you take 600 mg ibuprofen every 6 hours or Tylenol 650 mg every 6 hours as needed for pain. If needed, you can alternate these medications so that you take 1 medication every 3 hours. For instance, at noon take ibuprofen, then at 3:00 p.m. take Tylenol, then at 6:00 p.m. take ibuprofen. Please schedule an appointment with for follow-up with your primary care provider as soon as possible. Return to the emergency department if you experience worsening or uncontrolled pain, vision changes, recurrent vomiting, difficulty with normal activities, abnormal behavior, difficulty walking, numbness, weakness, or any other concerning symptoms. If you feel you are unable to return to work, follow up with [facility]. [facility] [address] [place] [address] Prescriptions: No Action doxycycline monohydrate 100 mg capsule 100 mg PO BID 7 Days Qty: 14 0RF ibuprofen 800 mg tablet 800 mg PO TID Stand Alone Forms: Work/School Release Print Language: Turkmen
[2024-11-05 12:26] VITALS: BP 134/73; PULSE 80; RESP 18; TEMP 36.3; O2SAT 98; BMI 29.2
[2024-11-05 14:43] VITALS: BP 118/69; PULSE 84; RESP 16; TEMP 36.6; O2SAT 98
[2024-11-05 14:49] VITALS: BP 118/69; PULSE 84; RESP 16; TEMP 36.6; O2SAT 98
== END 2024-11-05 14:50 | disposition home or self-care (01) ==
PROVIDERS: Emergency Provider Emergency Medicine
DX: S09.90XA Unspecified injury of head, initial encounter (principal); W22.09XA Striking against other stationary object, initial encounter; Y93.89 Activity, other specified; Y92.9 Unspecified place or not applicable; Y99.0 Civilian activity done for income or pay
CPT/HCPCS: 70450; 99282; 99284

== ENCOUNTER → 2024-11-05 12:27 | Outpatient (BNV) | payer OTHER, SELFPAY | PROVIDERS: Emergency Provider Emergency Medicine; Visit Provider Radiology Diagnostic Radiology | DX: R51.9 Headache, unspecified (principal) | CPT/HCPCS: 70450 ==

== ENCOUNTER 2025-01-22 16:44 | Emergency (ER) | payer MEDICAID, SELFPAY ==
[2025-01-22 17:08] VITALS: BP 118/67; PULSE 70; RESP 16; TEMP 36.8; O2SAT 98; BMI 28.7
--- NOTE | 2025-01-22 17:11 | ED_ITS ---
HPI - General Adult General Chief complaint: Recheck/Abnormal Lab/Rx Stated complaint: Heart issues Time Seen by Provider: 01/22/25 19:52 Source: patient Mode of arrival: ambulatory Limitations: no limitations History of Present Illness ED Provider: Dr. Mary Rice HPI narrative: Patient comes to the emergency room complaining of high CPK. According to the patient, he has been working out rigorously for his physical training assessment. Patient states that he works out 2-1/2 hours twice a day every day for the last 2 weeks. The patient states that he had lab work done today and he was asked to come to the emergency room. Patient states that overall he feels well, denies any significant muscle pain. Patient states that overall he feels well. Patient states that sometimes occasionally he has some chest aches lasting for a few sec. Nonsustained pain, no shortness of breath. Denies nausea vomiting or diarrhea. Related Data Home Medications ?Medication ?Instructions ?Recorded ?Confirmed ibuprofen 800 mg tablet 800 mg PO TID 02/26/24 Previous Rx's ?Medication ?Instructions ?Recorded doxycycline monohydrate 100 mg 100 mg PO BID 7 days #14 caps 05/30/24 capsule Allergies Allergy/AdvReac Type Severity Reaction Status Date / Time SEASONAL ALLERGIES Allergy Mild SNEEEXING Uncoded 01/22/25 17:11 RUNNY NOSE Review of Systems 2 Review of Systems: Constitutional : No Weight loss, No Fever, No Chills, No Night Sweats, No Fatigue, No Malaise ENT/Mouth : No Hearing loss, No Ear Pain, No Nasal Congestion, No Sinus Pain, No Hoarseness, No sore throat, No Rhinorrhea, No Swallowing Difficulty Eyes: No Eye Pain, No Swelling, No Redness, No Foreign Body, No Discharge, No Vision Changes Cardiovascular : No Chest Pain, No SOB, No Dyspnea on Exertion, No Orthopnea, No Edema, No Palpitations Respiratory : No Cough, No Sputum, No Wheezing, No Smoke Exposure, No Dyspnea Gastrointestinal : No Nausea, No Vomiting, No Diarrhea, No Constipation, No abdominal Pain, No Hematochezia, No Melena Genitourinary : no irregular bleeding, No Dysuria, No Urinary Frequency, No Hematuria, No Urinary Incontinence, No Urgency, No Flank Pain, No Urinary Flow Changes, No Hesitancy Musculoskeletal : No joint pain, No Myalgias, No Joint Swelling Skin : No Skin Lesions, No rash Neuro : No Weakness, No Numbness, No Paresthesias, No Loss of Consciousness, No Dizziness, No Headache Psych : No Anxiety/Panic, No Depression, No SI/HI/AH/VH, No Social Issues, Heme/Lymph: No Bruising, No Bleeding,No Lymphadenopathy Endocrine : No Polyuria, No Polydipsia, No Temperature Intolerance [facility] Past Medical History Medical History No known health problems Family History Family History Maternal Grandfather Throat cancer Paternal Aunt Breast cancer Paternal Aunt Breast cancer Paternal Aunt Breast cancer Leukemia Paternal Grandmother Pancreatic cancer Social History Social History Alcohol intake: never Patient Tobacco Use Status: Former Tobacco user Advance Directives: No Advance Directives Information Provided: No Current occupational status: employed Current occupation: insulation / rigth handed Physical Exam ED Vital Signs: Vital Signs - 24 hr 01/22/25 17:08 01/22/25 19:32 Temperature 98.3 F 98.9 F Pulse Rate 70 69 Respiratory Rate 16 16 Blood Pressure 118/67 119/62 Pulse Oximetry 98 96 Oxygen Delivery Method Room Air Room Air BMI result Body Mass Index 28.7 Const Other: Appearance: Alert. Oriented X3. No acute distress. Eyes: Pupils equal, round and reactive to light. ENT: Pharynx normal. Neck: Normal inspection. Neck supple. No lymph nodes noted. No crepitus CVS: Normal heart rate and rhythm. Pulses normal. Normal S1 and S2 Respiratory: No respiratory distress. Breath sounds normal. No Wheezing. No rales Abdomen: Soft and nontender. No rigidity. No distention. Skin: Skin warm and dry. Normal skin color. Normal skin turgor. Extremities: No lower extremity edema. No Lacerations. No Rash Neuro: Oriented X 3. No motor deficit. No sensory deficit. Moving all extremities. No slurred speech. CN 2 through 12 grossly intact Psych: calm, cooperative, normal affect Course Course Course Narrative: RME, this is a rapid medical exam performed by John Moreno please refer to primary provider for complete H&P- 29-year-old male presents for evaluation of abnormal labs. The patient reports he is exercising vigorously to get in shape for his physical training assessment. He had labs done that showed a CK over 5000 as an outpatient the ED. He denies any pain but endorses fatigue. He admits that he has been working out for 2-1/2 hours twice per day for the last 2 weeks. Plan for labs, EKG, CK Medical Decision Making Medical Decision Making [facility] Narrative: patient's hematology does not show any significant acute abnormality. Patient's hemoglobin is 12.7, which is a bit low for a healthy 29-year-old male. MCV within normal limits. Otherwise no significant abnormality. patient's chemistry does not show any acute abnormality. BUN and creatinine within normal Limits . Patient's AST (242) is double that of ALT (108), ETOH abuse pattern. Normal T bilirubin. Normal alkaline phosphatase. Patient's CPK is 4514 which is expected for someone who works at 2.5 hours twice a day for 2 weeks. patient is asymptomatic, at this time no chest pain, no shortness of breath, patient denies any myalgias. I discussed with the patient that if he wishes, we can give him IV fluids. However, I discussed with the patient that after that we will discharge him home. At this time, his kidney function is within normal limits which she is reassuring. Patient states that he prefers to be discharged home and drink fluids at home. I discussed with the patient that we can send him home and encouraged him to drink plenty of fluids. Also, discussed with the patient to take 2-3 days of exercising to recover. However, overall a CPK of 4500 with normal creatinine function is not concerning. It was noted that patient's LFTs are a bit bumped, however, it is possible that patient may be drinking more alcohol than he reports. EKG: Normal sinus rhythm, heart rate 62, no ST segment depression or elevation, no T-wave inversion, QTC 389. Lab Data 01/22/25 17:17 01/22/25 17:17 Labs: Lab Results 01/22/25 01/22/25 Range/Units 17:17 19:05 WBC 8.2 (4.8-10.8) X10*3/uL RBC 4.42 L (4.60-5.80) X10*6/uL Hgb 12.7 L (14.0-18.0) g/dl Hct 38.7 L (42.0-52.0) % MCV 87.6 (80.0-98.0) fL MCH 28.7 (27.0-33.0) pg MCHC 32.8 (31.0-36.0) g/dl RDW 14.3 (11.0-16.0) % Plt Count 405 H (160-400) X10*3/uL MPV 8.5 L (9.4-12.4) fL Immature Gran % (Auto) 0.4 (0.0-0.4) % Neut % (Auto) 61.1 (45-73) % Lymph % (Auto) 26.6 (20-40) % Grainger % (Auto) 8.7 (2-11) % Eos % (Auto) 2.6 (0-4) % Baso % (Auto) 0.6 (0-2) % Lymph # (Auto) 2.2 (1.2-4.9) X10*3/uL Grainger # (Auto) 0.7 (0.1-1.2) X10*3/uL Eos # (Auto) 0.2 (0.0-0.4) X10*3/uL Baso # (Auto) 0.1 (0.0-0.2) X10*3/uL Abs Immat Gran (auto) 0.03 (0.00-0.03) X10*3/uL Absolute Neuts (auto) 5.0 (2.0-8.3) x10*3/uL Absolute Nucleated RBC 0.000 (0.0-0.012) X10*3/uL Nucleated RBC % (auto) 0.0 (0.0-0.2) /100WBC Sodium 141 (135-145) mmol/L Potassium 3.5 (3.3-5.1) mmol/L Chloride 105 (96-108) mmol/L Carbon Dioxide 30 H (22-29) mmol/L Anion Gap 10 L (12-20) BUN 11 (9-16) mg/dL Creatinine 1.12 (0.5-1.4) mg/dL Estim Creat Clear Calc 106.8 Estimated GFR > 60 Random Glucose 88 (60-115) mg/dL Calcium 9.2 (8.4-10.2) mg/dL Magnesium 2.1 (1.6-2.6) mg/dL Total Bilirubin 0.3 (0.0-1.0) mg/dL AST 242 H (5-37) U/L ALT 108 H (0-40) U/L Alkaline Phosphatase 74 (39-117) U/L Total Creatine Kinase 4514 H (38-174) U/L Troponin I High Sens < 2.7 (<3.5-35.0) ng/L B-Natriuretic Peptide 17 (<100) pg/mL Total Protein 7.9 (6.5-8.0) g/dL Albumin 3.8 (3.5-5.0) g/dL Lipase 14 (8-78) U/L Urine Color Dark Yellow Urine Appearance Cloudy Urine pH 6.0 (5.0-9.0) Ur Specific [place] 1.025 (1.005-1.025) Urine Protein Trace (Neg-Trace) mg/dL Urine Glucose (UA) Negative (Negative) mg/dL Urine Ketones Trace (Negative) mg/dL Urine Blood Large (3+) H (Negative) Urine Nitrite Negative (Negative) Ur Leukocyte Esterase Negative (Negative) Urine RBC >20 H (0-2) /HPF Urine WBC 0-5 (0-5) /HPF Ur Squamous Epith Cells 0-2 (0-2) /HPF Urine Bacteria None Seen (None Seen) Hyaline Casts 0-2 (0-2) /LPF Discharge Plan Discharge Clinical Impression: Exertional rhabdomyolysis Patient Disposition: Home, Self-Care Instructions: Rhabdomyolysis (ED) Additional Instructions: please make sure that you drink plenty of fluids, especially with electrolytes such as Powerade , Pedialyte or Gatorade. Take couple of days of rest, then if you have no muscle pains, you may resume your normal activities. Please follow- up with your primary care physician tomorrow. If you have any worsening or new symptoms, please return to the emergency room or call 911 Prescriptions: No Action doxycycline monohydrate 100 mg capsule 100 mg PO BID 7 Days Qty: 14 0RF ibuprofen 800 mg tablet 800 mg PO TID Print Language: Irish
[2025-01-22 17:21] LABS: MANUAL DIFF FLAG NO
[2025-01-22 17:29] LABS: Basophils Absolute Auto 0.1 X10*3/uL (0.0-0.2); Basophils Percent Auto 0.6 % (0-2); Eosinophils Absolute Auto 0.2 X10*3/uL (0.0-0.4); Eosinophils Percent Auto 2.6 % (0-4); Hematocrit 38.7 % (42.0-52.0); Hemoglobin 12.7 g/dl (14.0-18.0); Imm Gran Abs Auto 0.03 X10*3/uL (0.00-0.03); Imm Gran Pct Auto 0.4 % (0.0-0.4); Lymphocytes Absolute Auto 2.2 X10*3/uL (1.2-4.9); Lymphocytes Percent Auto 26.6 % (20-40); Mean Corpuscular HGB Conc 32.8 g/dl (31.0-36.0); Mean Corpuscular Hemoglobin 28.7 pg (27.0-33.0); Mean Corpuscular Volume 87.6 fL (80.0-98.0); Mean Platelet Volume 8.5 fL (9.4-12.4); Monocytes Absolute Auto 0.7 X10*3/uL (0.1-1.2); Monocytes Percent Auto 8.7 % (2-11); Neutrophils Percent Auto 61.1 % (45-73); Platelet Count 405 X10*3/uL (160-400); Red Blood Count 4.42 X10*6/uL (4.60-5.80); Red Cell Distribution Width 14.3 % (11.0-16.0); White Blood Count 8.2 X10*3/uL (4.8-10.8)
[2025-01-22 17:40] LABS: Alanine Aminotransferase 108 U/L (0-40); Albumin Level 3.8 g/dL (3.5-5.0); Anion Gap 10 (12-20); Aspartate Amino Transferase 242 U/L (5-37); Bilirubin Total 0.3 mg/dL (0.0-1.0); Blood Urea Nitrogen 11 mg/dL (9-16); Calcium 9.2 mg/dL (8.4-10.2); Carbon Dioxide 30 mmol/L (22-29); Chloride 105 mmol/L (96-108); Creatinine Clr Calc Pharmacy 106.8; Estimated Glomerular Filt Rate > 60; Glucose Random 88 mg/dL (60-115); Lipase 14 U/L (8-78); Magnesium 2.1 mg/dL (1.6-2.6); Potassium 3.5 mmol/L (3.3-5.1); Sodium 141 mmol/L (135-145); Total Protein 7.9 g/dL (6.5-8.0)
[2025-01-22 17:42] LABS: B Type Natriuretic Peptide 17 pg/mL (<100)
--- NOTE | 2025-01-22 17:47 | MHC.EDTECH ---
EKG done. its not crssing over on the computer
[2025-01-22 17:48] LABS: Troponin-I High Sensitivity < 2.7 ng/L (<3.5-35.0)
[2025-01-22 17:54] LABS: Alkaline Phosphatase 74 U/L (39-117)
[2025-01-22 19:12] LABS: Appearance Urine Cloudy; Color Urine Dark Yellow; Glucose Urine UA Negative (Negative); Leukocyte Esterase Urine Negative (Negative); Nitrite Urine Negative (Negative); Specific Gravity - Urine 1.025 (1.005-1.025); UMIC TRIGGER UACC YES; Urine Blood Large (3+) (Negative); Urine Ketones Trace mg/dL (Negative); Urine Protein Trace mg/dL (Neg-Trace)
[2025-01-22 19:14] LABS: Bacteria Urine None Seen (None Seen); Hyaline Casts Urine 0-2 /LPF (0-2); RBC Urine >20 /HPF (0-2); Squamous Epithelial Cell Urine 0-2 /HPF (0-2); WBC Urine 0-5 /HPF (0-5)
[2025-01-22 19:32] VITALS: BP 119/62; PULSE 69; RESP 16; TEMP 37.2; O2SAT 96
--- NOTE | 2025-01-22 19:33 | MHC.EDTECH ---
This pct just assumed care of Patient ,vitals taken ,Patient was change into hospital attire and hooked up to dextrine mixer ,Patient mom at beside .
[2025-01-22 20:18] VITALS: BP 119/62; PULSE 69; RESP 16; TEMP 37.2; O2SAT 96
== END 2025-01-22 20:18 | disposition home or self-care (01) ==
PROVIDERS: Physician Assistant; Emergency Provider Emergency Medicine
DX: M62.82 Rhabdomyolysis (principal); Z87.891 Personal history of nicotine dependence
CPT/HCPCS: 36415; 80053; 81001; 82550; 83690; 83735; 83880; 84484; 85025; 99283; 99284